=== PATIENT | female | born 1945 | race Caucasian/White ===

== ENCOUNTER → 2018-12-03 | Outpatient (CLI) | payer OTHER ==
--- NOTE | 2018-12-03 12:43 | REP ---
BILATERAL MAMMOGRAM WITH 3D TOMOSYNTHESIS, DIAGNOSTIC MAMMOGRAM LEFT BREAST, AND LEFT BREAST ULTRASOUND: HISTORY: Palpable lump in the region of the left axillary tail since September. Family history of breast cancer in paternal grandmother. [facility]%. COMPARISON: 07/29/2012 as well as other prior exams. There is mild to moderate bilateral fibroglandular tissue. At the site of the palpable lump in the left axillary tail region, there appears to be an irregular nodule surrounding spiculated densities. The nodule itself measures slightly greater than 1 cm in diameter. No other mass or clustered microcalcifications are seen bilaterally. Real-time sonographic evaluation of the left axillary tail region is performed at the site of the palpable abnormality. There is a spiculated hypoechoic nodule with internal blood flow. It measures 1.3 x 0.9 x 0.9 cm. This appears suspicious. IMPRESSION: BIRADS 4: BI-RADS/ACR category 4 mammogram. Suspicious Abnormality - biopsy should be considered. ACR 4 suspicious. At the site of the palpable lump in the region of the left axillary tail, there is an irregular nodule with surrounding spiculations. By ultrasound this is solid and also demonstrates spiculated irregular margins. Maximum diameter by ultrasound is 1.3 cm. I recommend ultrasound-guided biopsy with postprocedure mammogram. This mammogram was interpreted with the aid of an FDA-approved computer-aided detection system. A. Negative x-ray reports should not delay biopsy if a dominant or clinically suspicious mass is present. B. Four to eight percent of cancers are not identified by x-ray. C. Adenosis and dense breasts may obscure an underlying neoplasm. The patient states she/he had a clinical breast exam in November 2018. The patient letter being requested is M4. Electronically Signed by Cecilio Ervin MD 12/03/2018 12:54 P
== END ==
LOC: M RAD 10:01
PROVIDERS: ATTEND Physician Assistant
DX: N63.20 Unspecified lump in the left breast, unspecified quadrant (principal)
CPT/HCPCS: 76642; 77066; G0279

== ENCOUNTER → 2018-12-06 | Outpatient (REF) | payer OTHER ==
[~2018-12-06] MED LIST: GLIM2TAB PO; GLIM4TAB PO; HYDR-4571 PO; LISI-542 PO; METF10004 PO; MULTCAP PO; SIMV20TA2 PO; VITA100018 PO; VITA100054 PO
[2018-12-06 17:40] LABS: BASO # 0.1 10^3/uL (0.0-0.2); BASO % 0.7 % (0.0-1.0); EOS # 0.2 10^3/uL (0.0-0.50); EOS % 2.3 % (0.0-3.0); HEMATOCRIT 41.6 % (36.0-47.0); HEMOGLOBIN 12.9 g/dl (12.0-15.5); LYMPH # 2.3 10^3/uL (1.5-4.5); MEAN CORPUSCULAR HEMOGLOBIN 28.5 pg (27.0-33.0); MEAN CORPUSCULAR VOLUME 91.8 fl (80.0-96.0); MONO # 0.6 10^3/uL (0.0-0.8); NEUTROPHILS # 3.8 10^3/uL (1.8-7.7); NEUTROPHILS % 54.6 % (36.0-66.0); PLATELET COUNT, AUTOMATED 272 10^3/uL (150-450); RED BLOOD COUNT 4.53 10^6/uL (4.00-5.40)
[2018-12-06 17:43] LABS: ALBUMIN 3.6 GM/DL (3.2-5.2); ALT/SGPT 36 U/L (12-78); BILIRUBIN,TOTAL 0.5 MG/DL (0.2-1.0); BLOOD UREA NITROGEN 10 MG/DL (7-18); CALCIUM LEVEL 9.1 MG/DL (8.8-10.2); CARBON DIOXIDE LEVEL 28 MEQ/L (21-32); CHLORIDE LEVEL 105 MEQ/L (98-107); CHOLESTEROL LEVEL 121 MG/DL (<200); CHOLESTEROL RISK RATIO 2.086 (<5); CREATININE FOR GFR 0.78 MG/DL (0.55-1.30); GLOMERULAR FILTRATION RATE > 60.0 (>39); GLUCOSE, FASTING 190 MG/DL (70-100); HDL CHOLESTEROL 58 MG/DL (>40); LDL CHOLESTEROL 40 MG/DL (<100); NON-HDL-C 63 MG/DL; POTASSIUM SERUM 4.4 MEQ/L (3.5-5.1); SODIUM LEVEL 140 MEQ/L (136-145); TOTAL PROTEIN 7.5 GM/DL (6.4-8.2); TRIGLYCERIDES LEVEL 115 MG/DL (<150)
[2018-12-06 18:06] LABS: MALB URINE SIEMENS 35.7 MG/L
[2018-12-06 18:33] LABS: HEMOGLOBIN A1c 8.8 %
== END ==
LOC: M SFHCCAPE 07:07
PROVIDERS: ATTEND Physician Assistant
DX: E11.8 Type 2 diabetes mellitus with unspecified complications (principal); E78.5 Hyperlipidemia, unspecified

== ENCOUNTER → 2018-12-08 | Outpatient (CLI) | payer OTHER ==
[~2018-12-08] MED LIST changes: +LETR2.5T2 PO; +LIDOCAINE 1% MDV 20ML VIAL As Ordered ONE; +LOSA25TA14 PO
--- NOTE | 2018-12-08 12:23 | REP ---
DIGITAL DIAGNOSTIC UNILATERAL LEFT BREAST MAMMOGRAPHY WITH CAD: HISTORY: Marker clip placement mammography. The patient is status post ultrasound-guided needle biopsy and marker clip placement. Comparison mammography is from December 03, 2018. FINDINGS: CC, laterally exaggerated CC, and MLO views of the left breast demonstrate the marker clip in good position just deep to the nodular target in the far upper outer quadrant of the left breast. No hematoma is identified. IMPRESSION: Marker clip in good position. This mammogram was interpreted with the aid of an FDA-approved computer-aided detection system. Electronically Signed by Ej Watts MD 12/08/2018 04:33 P
--- NOTE | 2018-12-08 16:39 | REP ---
Ultrasound-guided left breast biopsy. The procedure was performed by JUAN Ramirez, under the direct supervision of Dr. Watts. The patient has a history of a of a palpable lump since September. On the mammogram dated 12/03/2097 this palpable area appeared as an irregular nodule surrounding spiculated densities. The risks and benefits of the procedure were explained to the patient and informed consent was obtained both verbally and written. Directly prior to the start of the procedure, a formal timeout was completed in the procedure room. The left breast mass was localized using ultrasound guidance. The skin was prepped and draped in a sterile fashion. 10 1% lidocaine was used as a local anesthetic. Using ultrasound guidance a 13-gauge suction assisted Mammotome needle was inserted and 6 core biopsy samples were obtained. A marker clip was placed at the biopsy site. The patient tolerated the procedure well and there were no immediate complications. After the appropriate monitored convalescence the patient was discharged from the department. Reviewed by JUAN Barcenas 12/08/2018 12:43 P Electronically Signed by Ej Watts MD 12/08/2018 04:31 P
== END ==
LOC: M RADPRO 09:55
PROVIDERS: ATTEND Physician Assistant
DX: C50.412 Malignant neoplasm of upper-outer quadrant of left female breast (principal)

== ENCOUNTER 2018-12-21 07:58 | Day surgery (SDC) | payer OTHER ==
[~2018-12-21] VITALS: Ht 154.9 cm; Wt 67.6 kg
[~2018-12-21 07:58] MED LIST changes: -HYDR-4571 PO; -LETR2.5T2 PO; -LIDOCAINE 1% MDV 20ML VIAL As Ordered ONE; +LIDOCAINE 5% (LIDODERM) PATCH TD ONE; -LOSA25TA14 PO; +LR 1,000 ML IV ONE
[2018-12-21] MEDS ORDERED: PROPOFOL 200 MG/20 ML VIAL As Ordered ONE (10:52)
[2018-12-21] MEDS ORDERED: ROCURONIUM BROMIDE 50 MG/5 ML VIAL As Ordered ONE ×2 (10:53→14:13)
[2018-12-21] MEDS ORDERED: LIDOCAINE 2% INJ 100 MG/5 ML SDV (FOR ANES.) As Ordered ONE (10:53)
[2018-12-21] MEDS ORDERED: KETOROLAC 60 MG/2 ML VIAL (J1885) As Ordered ONE (10:54)
[2018-12-21] MEDS ORDERED: dexameTHASONE 4 MG/ML 1ML VIAL (J1100) As Ordered ONE (10:54)
[2018-12-21] MEDS ORDERED: ONDANSETRON 4MG/2ML VIAL (J2405) As Ordered ONE ×2 (10:54→18:01)
[2018-12-21] MEDS ORDERED: MIDAZOLAM INJ 2 MG/2 ML VIAL (J2250) As Ordered ONE (11:06)
[2018-12-21] MEDS ORDERED: fentaNYL 250 MCG/5 ML INJECTION (J3010) As Ordered ONE (11:06)
[2018-12-21] MEDS ORDERED: METHYLENE BLUE 0.5% (5MG/ML) 10 ML AMP (PROVAYBLUE)(Q9968 PER 1MG) As Ordered ONE ×2 (12:33→12:51)
[2018-12-21] MEDS ORDERED: BUPIVACAINE HCL 0.25% 30 ML VIAL As Ordered ONE (12:33)
[2018-12-21] MEDS ORDERED: SUGAMMADEX SODIUM 500 MG/5 ML VIAL (BRIDION) As Ordered ONE (14:13)
[2018-12-21] MEDS ORDERED: ACETAMINOPHEN 1000MG 100ML IV BTL (OFIRMEV) (J0131 PER 10MG) As Ordered ONE (14:44)
[2018-12-21] MEDS ORDERED: LR 1,000 ML IV SCH (16:45)
[2018-12-21] MEDS ORDERED: ACETAMINOPHEN TAB 650MG DOSE (2X325MG) PO PRN (16:45)
[2018-12-21] MEDS ORDERED: fentaNYL 100 MCG/2 ML INJECTION (J3010) IV PRN (16:45)
[2018-12-21] MEDS ORDERED: ONDANSETRON 4MG/2ML VIAL (J2405) IV PRN (16:45)
[2018-12-21] MEDS ORDERED: NORCO, ANEXSIA 5/325MG TABLET (HYDROcodone/ACETAMINOPHEN) PO PRN (16:45)
[2018-12-21] MEDS ORDERED: PERCOCET 5MG/325MG TAB PO PRN (16:45)
[2018-12-21] MEDS ORDERED: HYDROMORPHONE HCL 0.5 MG/ 0.5 ML SYRINGE (J1170 PER 1) IV PRN (16:45)
[2018-12-21] MEDS ORDERED: oxyCODONE 5MG TAB As Ordered ONE (16:53)
[2018-12-21] MEDS ORDERED: oxyCODONE 5MG TAB PO PRN (17:00)
[2018-12-21] MEDS ORDERED: HYDR-4571 PO (17:08)
[2018-12-21 18:15] VITALS: BP 156/71
--- NOTE | 2018-12-22 20:34 | REP ---
Left Breast Lymphoscintigraphy The procedure was performed by JUAN Ramirez, under the personal supervision of Dr. Ervin. The risks and benefits of the procedure were explained to the patient and informed consent was obtained both verbally and written. Directly prior to the start of the procedure, a formal timeout was completed in the procedure room. Using topical anesthetic and sterile technique 1.005 mCi of technetium 99m filtered sulfur colloid was injected subdermally in eight fractionated periareolar injections. Images obtained 1 hour after injection show a dominant focus of the superior breast, other smaller less intense foci are visualized in the axilla. Impression: 1. Dominant focus of the superior left breast, other smaller less intense foci are visualized in the axilla. Reviewed by JUAN Barcenas 12/21/2018 02:37 P Electronically Signed by Cecilio Ervin MD 12/22/2018 08:25 P
--- NOTE | 2018-12-23 09:29 | RO ---
DATE OF PROCEDURE: 12/21/2018 PREOPERATIVE DIAGNOSIS: Left breast carcinoma. POSTOPERATIVE DIAGNOSIS: Left breast carcinoma. PROCEDURES PERFORMED: 1. Left breast/axilla sentinel lymph node biopsy. 2. Left partial mastectomy (lumpectomy). SURGEON: Dr. Ibanez ANESTHESIA: General. INDICATIONS FOR THE PROCEDURE: The patient is a 73-year-old woman who felt a small hard nodule in the subcutaneous tissues of the far upper outer quadrant of the left breast. A mammogram and ultrasound showed a small nodule in this area and an ultrasound-guided biopsy confirmed infiltrating ductal carcinoma. The patient is now for a left sentinel lymph node biopsy and partial mastectomy. OPERATIVE PROCEDURE: The patient was sent to the x-ray department where she underwent injection of radioactive tracer in the periareolar area. Lymphoscintigraphy was performed with identification of a single area of uptake in the axilla. She was brought to the operating room and placed supine on the operating table. She was placed under general endotracheal anesthesia. Several aliquots of methylene blue were injected into the area surrounding the tumor nodule palpable in the high upper outer quadrant of the left breast. The NeoProbe was used to inspect for areas of uptake in the axilla and a single quite hot spot in the anterior axilla just posterior to the edge of the pectoralis major muscle was identified. A folded towel was placed behind the patient's left shoulder to bring her left axilla forward somewhat. The patient's left upper extremity breast and chest wall were then prepped and draped in a sterile fashion. Initially the axilla was re-examined with the NeoProbe and the site of activity was marked with a skin marker. An approximately 3 cm transverse skin incision was placed over this area staying posterior to the left anterior axillary fold. The incision was deepened through the subcutaneous tissues using cautery. The axillary fascia was opened and dissection then proceeded into the axillary tissues guided by the NeoProbe. The node was identified posterior to the pectoral muscle. With s combination of sharp and cautery dissection the dissection was deepened into the axilla. An approximately 1 cm soft tissue mass consistent with a node with some surrounding fat was identified. This appeared to have a second node attached adjacent to this and these two nodes were removed together and then off the field. The radial labeled node had a 10-second gamma count of 24,245. The second node had no recorded activity. The background count within the axilla was 233 for 10 seconds. No other hot spots were identified. Hemostasis was ensured. I elected to leave the wound open well proceeding with the wide excision of the cancer as the line of excision for the cancer would represent a continuation from the lateral aspect of the sentinel node incision. A skin marker was used outline an elliptical excision surrounding the palpable tumor nodule with a margin of approximately 1-1/2-2 cm on all sides. The skin was incised with a scalpel and this was carried medially to connect with the end of the sentinel node biopsy site. The incision was then deepened through the deep dermis and the subcutaneous tissues using the needle tip cautery. Dissection was deepened into the deeper tissues of the breast. The excision was carried down to the fascia of the chest wall. In one area on the inferior aspect of the specimen a small fibrotic appearing area was transected with the cautery. I do not believe this represented tumor but just in case another small rim of tissue was excised and this area including a small piece of skin and underlying tissue and this site of firmer tissue was marked with a silk suture. The specimen removed was 9 x 5 x 4 cm in maximal dimension. This was marked appropriately using the vector margin marker system. This was sent for permanent pathology. While performing the partial mastectomy I was called by Dr. Robertson of pathology who reported that frozen sections on the two identified lymph nodes showed no evidence of cancer in the specimen. The wound was inspected for hemostasis and this was ensured with the cautery. The wound was large enough that I felt there might be benefit from a drain so a 19-[place] Butch drain was placed through a stab wound at the lateral inferior margin of the breast and directed up through the bed of the lumpectomy site and into the axillary dissection site. The deeper tissues were approximated with multiple simple sutures of #2-0 chromic. More superficially the tissues were approximated with some #3-0 chromic and #3-0 Vicryl was used to approximate the skin edges. A running subcuticular suture of #4-0 Vicryl was then used to close the skin edges. Steri-Strips were applied. The drain was sutured to the skin with a #2-0 silk and the site was dressed with a chlorhexidine gluconate OpSite. The drain was connected to a Ervin-Edmondson bulb. A bulky bandage was applied. The patient's specimens included: 1. [place] [id number]. Specimen two was additional lymph node. Specimen three was the partial mastectomy marked with a margin marker system and specimen four was the extra breast tissue from the additional margin at the inferior aspect marked with a silk suture at the area of interest. The patient was awakened in the operating room, extubated and moved to the recovery room in stable condition. SIN
[2019-01-04] MEDS ORDERED: LOSA25TA14 PO (13:55)
[2019-01-06] MEDS ORDERED: LETR2.5T2 PO (13:26)
== END 2018-12-21 18:33 | disposition home or self-care (01) ==
LOC: M SDC 07:58
PROVIDERS: ATTEND Surgery
DX: C50.412 Malignant neoplasm of upper-outer quadrant of left female breast (principal); Z17.0 Estrogen receptor positive status [ER+]; I10 Essential (primary) hypertension; E78.5 Hyperlipidemia, unspecified; E11.9 Type 2 diabetes mellitus without complications; E04.9 Nontoxic goiter, unspecified; K58.8 Other irritable bowel syndrome; K21.9 Gastro-esophageal reflux disease without esophagitis; Z85.048 Personal history of other malignant neoplasm of rectum, rectosigmoid junction, and anus; Z85.41 Personal history of malignant neoplasm of cervix uteri; Z92.21 Personal history of antineoplastic chemotherapy; Z92.3 Personal history of irradiation; Z79.899 Other long term (current) drug therapy; Z79.84 Long term (current) use of oral hypoglycemic drugs
CPT/HCPCS: 19301; 38525; 78195; 88305; 88307; 88329; A9541; J0131; J1100; J1885; J2250; J2405; J3010; Q9968

== ENCOUNTER → 2019-01-04 | Outpatient (CLI) | payer OTHER ==
[~2019-01-04] MED LIST changes: +HYDR-4571 PO; +LETR2.5T2 PO; -LIDOCAINE 5% (LIDODERM) PATCH TD ONE; +LOSA25TA14 PO; -LR 1,000 ML IV ONE
--- NOTE | 2019-01-06 10:13 | RADONC ---
RADIATION ONCOLOGY CONSULTATION NOTE DATE OF SERVICE: 01/04/2019 CHART NUMBER: [id number]. DIAGNOSIS: Left breast cancer. STAGE: IA, [id number], ER positive, TN positive, HER2 negative, grade 2. ECOG PERFORMANCE STATUS: 0. CONSULTATION NOTE: Ms. Cleveland is a very pleasant 73-year-old white female with the diagnosis of a stage IA, [id number], moderately differentiated invasive ductal carcinoma of the left breast, which is ER positive, TN positive, and HER2 negative, who is presenting to me today status post lumpectomy and sentinel lymph node biopsy for discussion of postoperative radiation therapy for conservative breast management. HISTORY OF PRESENT ILLNESS: The patient was in the usual state of health but noticed a small pea-like lesion in the axillary tail of her left breast. On 12/03/2018, the patient underwent bilateral mammography, which revealed a 1.3 cm x 0.9 cm x 0.9 cm spiculated hypoechoic nodule in the axillary tail region of her left breast. On 12/21/2018, the patient underwent lumpectomy and sentinel lymph node biopsy. Pathology revealed a 1.6 cm moderately differentiated invasive ductal carcinoma. All margins of resection were negative with the closest margin measuring 5 mm of clearance. The tumor was estrogen receptor and progesterone receptor strongly positive and HER2 negative. One sentinel lymph node was sampled and was negative for malignancy, and a second axillary lymph node was sampled and was also negative for malignancy. The patient has done well since surgery and was seen by medical oncology who recommended adjuvant endocrine therapy. She is now presenting to me to discuss possible external beam radiation therapy, which she is strongly against. PAST MEDICAL HISTORY: The patient's past medical history is positive for a history of cervical or anal cancer back in 2000. I am attempting to obtain her records, which were from our department. They are not available to me at this moment. She had radiation, chemotherapy, and surgery for that and has done well with regard to long-term cure and control, although she reports that she had a very difficult time with the treatments and has been unable to have sex since and has bowel issues since then. Her past medical history is also positive for diabetes and a goiter. She had a hysterectomy in 1973 at the age of 27 for cervical cancer. FAMILY HISTORY: The patient's family history is positive for a mother with some type of cancer. as well as a paternal grandmother with cancer. ALLERGIES: The patient has no known drug allergies. SOCIAL HISTORY: The patient has never smoked cigarettes. She used to drink alcohol years ago. REVIEW OF SYSTEMS: The patient's review of systems continues to be positive for some episodic rectal bleeding, as well as scar tissue from radiation. She also has occasional diarrhea. Her review of systems is otherwise noncontributory. She denies nausea, vomiting, fevers, chills, night sweats, diplopia, headaches, anxiety or depression, anorexia, weight loss, visual disturbances, chest pain, urinary or bowel difficulties, bone pain, or neurological problems. PHYSICAL EXAMINATION: The patient is a well-developed, well-nourished female in no acute distress. HEENT examination is normocephalic, atraumatic. Extraocular movements are intact. There is no palpable cervical, supraclavicular, infraclavicular, axillary, or inguinal lymphadenopathy present. Lungs are clear to auscultation and percussion. Heart has a regular rate and rhythm. Abdomen is benign with no hepatosplenomegaly, masses, or tenderness. Breast examination reveals no masses or discharge bilaterally. Skeletal examination reveals no tenderness to pressure or percussion of the bony skeleton. Extremities reveal no clubbing, cyanosis, or edema. Neurologic examination is grossly intact, as is the remainder of the physical examination. ASSESSMENT: I had a very lengthy discussion with this patient and indeed reviewed the NCCN guidelines. The patient is strongly against receiving radiation, saying that radiation in the past has ruined her life. The guidelines do state breast irradiation may be omitted in patients equal to or greater than 70 years of age with estrogen/receptor positive, clinically node negative, T1 tumors, who receive adjuvant endocrine therapy. This category clearly includes this patient; and, therefore, she is one of the patients who can be omitted from radiation. I did point out to her that she had both cervical cancer and then anal cancer. Although she has had some difficulties with occasional rectal bleeding and some loose bowel movements, she is now 18 years out from that therapy, disease-free, and without a colostomy. I did go through the local recurrence rates with and without postoperative radiation therapy and the philosophy behind such treatment. Once again, in light of the NCCN guidelines, I cannot push this patient towards treatment. I did say we are available to her should she change her mind any time in the next few weeks. In the meantime, she is aware that she needs to continue to have close followup with her medical oncologist, Dr. Gautam. Dr. Gautam will be ordering routine mammography work and doing routine breast evaluations. In addition, she needs to continue with her adjuvant endocrine therapy. cc: MD Elias Bernabe MD MTDD
== END ==
LOC: M ONCR 12:21
PROVIDERS: ATTEND Radiology Radiation Oncology
DX: C50.912 Malignant neoplasm of unspecified site of left female breast (principal)

== ENCOUNTER → 2019-04-18 | Outpatient (REF) | payer OTHER ==
[~2019-04-18] MED LIST changes: -GLIM2TAB PO; +GLIM2TAB2 PO; -GLIM4TAB PO; +GLIM4TAB3 PO
[2019-04-18 17:22] LABS: ALBUMIN 3.7 GM/DL (3.2-5.2); ALT/SGPT 37 U/L (12-78); BILIRUBIN,TOTAL 0.5 MG/DL (0.2-1.0); BLOOD UREA NITROGEN 10 MG/DL (7-18); CALCIUM LEVEL 9.5 MG/DL (8.8-10.2); CARBON DIOXIDE LEVEL 29 MEQ/L (21-32); CHLORIDE LEVEL 105 MEQ/L (98-107); CHOLESTEROL LEVEL 156 MG/DL (<200); CHOLESTEROL RISK RATIO 2.557 (<5); GLOMERULAR FILTRATION RATE > 60.0 (>39); GLUCOSE, FASTING 209 MG/DL (70-100); HDL CHOLESTEROL 61 MG/DL (>40); LDL CHOLESTEROL 75 MG/DL (<100); NON-HDL-C 95 MG/DL; POTASSIUM SERUM 4.4 MEQ/L (3.5-5.1); SODIUM LEVEL 140 MEQ/L (136-145); TOTAL PROTEIN 7.7 GM/DL (6.4-8.2); TRIGLYCERIDES LEVEL 102 MG/DL (<150)
[2019-04-18 17:44] LABS: MALB URINE SIEMENS 17.6 MG/L; MAU/CREAT RATIO 10.7 MCG/MG (0.0-30.0)
[2019-04-18 17:46] LABS: BASO % 0.6 % (0.0-1.0); EOS # 0.3 10^3/uL (0.0-0.5); EOS % 3.7 % (0.0-3.0); HEMATOCRIT 41.5 % (36.0-47.0); HEMOGLOBIN 12.6 g/dl (12.0-15.5); LYMPH # 2.3 10^3/uL (1.5-5.0); LYMPH % 34.7 % (24.0-44.0); MEAN CORPUSCULAR HEMOGLOBIN 28.1 pg (27.0-33.0); MEAN CORPUSCULAR HGB CONC 30.4 g/dl (32.0-36.5); MEAN CORPUSCULAR VOLUME 92.4 fl (80.0-96.0); MONO # 0.6 10^3/uL (0.0-0.8); MONO % 9.4 % (0.0-5.0); NEUTROPHILS # 3.4 10^3/uL (1.5-8.5); PLATELET COUNT, AUTOMATED 247 10^3/uL (150-450); RED BLOOD COUNT 4.49 10^6/uL (4.00-5.40); WHITE BLOOD COUNT 6.7 10^3/uL (4.0-10.0)
[2019-04-18 18:13] LABS: HEMOGLOBIN A1c 8.8 %
== END ==
LOC: M SFHCCAPE 06:58
PROVIDERS: ATTEND Physician Assistant
DX: I10 Essential (primary) hypertension (principal); E11.8 Type 2 diabetes mellitus with unspecified complications; E78.5 Hyperlipidemia, unspecified

== ENCOUNTER → 2019-05-16 | Outpatient (CLI) | payer OTHER ==
[~2019-05-16] MED LIST changes: -SIMV20TA2 PO; +SIMV20TA22 PO
--- NOTE | 2019-05-19 10:56 | DEXA ---
AP SPINE L1 - L4 1.060 -1.1 0.6 LT FEMUR TOTAL 0.875 -1.1 0.6 LT NECK 0.789 -1.8 0.1 RT FEMUR TOTAL 0.823 -1.5 0.2 RT NECK 0.728 -2.2 -0.4 TOTAL BODY TOTAL OTHER COMMENTS: There is low bone density of the spine and hips. The decreased density of the spine does not represent significant change. The decreased density of the left hip does represent a significant change. The increased density of the right hip does not represent a significant change. The density of the spine is increased 7.9% since the initial exam on 07/19/2010. The spine density has decreased 0.7% since the most recent exam on 10/30/2016. The density of the left hip has increased 2.7% since the initial exam on 10/17/2014. The density of the left hip has decreased 2.2% since the most recent exam on 10/30/2016. The density of the right hip has increased 2.5% since the initial exam on 10/17/2014. The density of the right hip has increased 1.2% since the most recent exam on 10/30/2016. FOLLOW-UP: Recommendation for the next bone density exam: 2 years. SIN
== END ==
LOC: M WHC 13:41
PROVIDERS: ATTEND Internal Medicine Medical Oncology
DX: C50.919 Malignant neoplasm of unspecified site of unspecified female breast (principal); M85.88 Other specified disorders of bone density and structure, other site; M85.851 Other specified disorders of bone density and structure, right thigh; M85.852 Other specified disorders of bone density and structure, left thigh

== ENCOUNTER → 2019-05-19 | Outpatient (REF) | payer OTHER ==
[2019-05-19 17:26] LABS: APPEARANCE, URINE CLEAR (CLEAR); BACTERIA, URINE AUTO NEGATIVE (NEGATIVE); BILIRUBIN, URINE AUTO NEGATIVE (NEGATIVE); BLOOD, URINE BLOOD NEGATIVE (NEGATIVE); COLOR, URINE YELLOW (YELLOW); GLUCOSE, URINE (UA) AUTO 3+ mg/dL (NEGATIVE); KETONE, URINE AUTO NEGATIVE (NEGATIVE); LEUKOCYTE ESTERASE, URINE AUTO NEGATIVE (NEGATIVE); MUCUS, URINE SMALL (NEGATIVE); NITRITE, URINE AUTO NEGATIVE (NEGATIVE); PROTEIN, URINE AUTO NEGATIVE (NEGATIVE); RBC, URINE AUTO 0 /HPF (0-3); SPECIFIC GRAVITY URINE AUTO 1.012 (1.002-1.035); SQUAMOUS EPITHELIAL CELL UR AU 0 /HPF (0-6); UROBILINOGEN, URINE AUTO 0.2 mg/dL (0.0-2.0); WBC, URINE AUTO 1 /HPF (0-3)
== END ==
LOC: M SFHCCAPE 12:04
PROVIDERS: ATTEND Physician Assistant
DX: R30.0 Dysuria (principal); B37.2 Candidiasis of skin and nail
CPT/HCPCS: 81001; 81002; 87070; 87077; 87086; 87186; G0463

== ENCOUNTER → 2019-07-25 | Outpatient (REF) | payer OTHER ==
[~2019-07-25] MED LIST changes: -GLIM2TAB2 PO; +GLIM2TAB4 PO; -GLIM4TAB3 PO; +GLIM4TAB5 PO
[2019-07-25 16:35] LABS: BASO # 0.1 10^3/uL (0.0-0.2); BASO % 0.7 % (0.0-1.0); EOS # 0.2 10^3/uL (0.0-0.5); EOS % 2.4 % (0.0-3.0); HEMATOCRIT 41.7 % (36.0-47.0); HEMOGLOBIN 12.6 g/dl (12.0-15.5); LYMPH # 2.6 10^3/uL (1.5-5.0); LYMPH % 36.4 % (24.0-44.0); MEAN CORPUSCULAR HEMOGLOBIN 27.6 pg (27.0-33.0); MEAN CORPUSCULAR HGB CONC 30.2 g/dl (32.0-36.5); MEAN CORPUSCULAR VOLUME 91.2 fl (80.0-96.0); MONO # 0.6 10^3/uL (0.0-0.8); MONO % 8.4 % (0.0-5.0); NEUTROPHILS # 3.7 10^3/uL (1.5-8.5); NEUTROPHILS % 51.8 % (36.0-66.0); PLATELET COUNT, AUTOMATED 254 10^3/uL (150-450); RED BLOOD COUNT 4.57 10^6/uL (4.00-5.40)
[2019-07-25 16:55] LABS: ALBUMIN 3.7 GM/DL (3.2-5.2); ALT/SGPT 36 U/L (12-78); BILIRUBIN,TOTAL 0.5 MG/DL (0.2-1.0); BLOOD UREA NITROGEN 10 MG/DL (7-18); CALCIUM LEVEL 8.9 MG/DL (8.8-10.2); CARBON DIOXIDE LEVEL 29 MEQ/L (21-32); CHLORIDE LEVEL 104 MEQ/L (98-107); CHOLESTEROL LEVEL 135 MG/DL (<200); CHOLESTEROL RISK RATIO 2.547 (<5); CREATININE FOR GFR 0.76 MG/DL (0.55-1.30); GLOMERULAR FILTRATION RATE > 60.0 (>39); GLUCOSE, FASTING 175 MG/DL (70-100); HDL CHOLESTEROL 53 MG/DL (>40); LDL CHOLESTEROL 62 MG/DL (<100); NON-HDL-C 82 MG/DL; POTASSIUM SERUM 4.4 MEQ/L (3.5-5.1); SODIUM LEVEL 140 MEQ/L (136-145); TOTAL PROTEIN 7.3 GM/DL (6.4-8.2); TRIGLYCERIDES LEVEL 102 MG/DL (<150)
[2019-07-25 18:16] LABS: HEMOGLOBIN A1c 9.3 %
== END ==
LOC: M SFHCCAPE 07:25
PROVIDERS: ATTEND Physician Assistant
DX: E11.8 Type 2 diabetes mellitus with unspecified complications (principal)

== ENCOUNTER → 2020-01-18 | Outpatient (REF) | payer OTHER ==
[~2020-01-18] MED LIST changes: +CALC600T60 PO; +INSUN SC; +OXYB-54 PO
[2020-03-03 17:38] LABS: ALBUMIN 3.8 GM/DL (3.2-5.2); ALT/SGPT 30 U/L (12-78); BILIRUBIN,TOTAL 0.7 MG/DL (0.2-1.0); BLOOD UREA NITROGEN 17 MG/DL (7-18); CALCIUM LEVEL 9.6 MG/DL (8.8-10.2); CARBON DIOXIDE LEVEL 33 MEQ/L (21-32); CHLORIDE LEVEL 106 MEQ/L (98-107); CREATININE FOR GFR 0.85 MG/DL (0.55-1.30); GLOMERULAR FILTRATION RATE > 60.0 (>39); GLUCOSE, FASTING 152 MG/DL (70-100); HEMOGLOBIN A1c 7.6 %; POTASSIUM SERUM 4.3 MEQ/L (3.5-5.1); SODIUM LEVEL 140 MEQ/L (136-145); TOTAL PROTEIN 7.6 GM/DL (6.4-8.2)
[2020-03-11 15:10] LABS: BASO # 0.1 10^3/uL (0.0-0.2); BASO % 0.7 % (0.0-1.0); EOS # 0.2 10^3/uL (0.0-0.5); EOS % 2.8 % (0.0-3.0); LYMPH # 2.4 10^3/uL (1.5-5.0); LYMPH % 34.7 % (24.0-44.0); MEAN CORPUSCULAR HGB CONC 31.1 g/dl (32.0-36.5); MEAN CORPUSCULAR VOLUME 93.2 fl (80.0-96.0); MONO # 0.7 10^3/uL (0.0-0.8); MONO % 10.4 % (0.0-5.0); NEUTROPHILS # 3.5 10^3/uL (1.5-8.5); PLATELET COUNT, AUTOMATED 255 10^3/uL (150-450); RED BLOOD COUNT 4.83 10^6/uL (4.00-5.40); WHITE BLOOD COUNT 6.8 10^3/uL (4.0-10.0)
== END ==
LOC: M LABDRAWC 11:45
PROVIDERS: ATTEND Physician Assistant
DX: H65.01 Acute serous otitis media, right ear (principal); H61.21 Impacted cerumen, right ear; Z79.84 Long term (current) use of oral hypoglycemic drugs
CPT/HCPCS: 36415; 80053; 83036; 85025; G0463

== ENCOUNTER → 2020-04-19 | Outpatient (REF) | payer OTHER ==
[2020-04-19 11:57] LABS: BASO % 0.5 % (0.0-1.0); EOS # 0.3 10^3/uL (0.0-0.5); HEMATOCRIT 45.1 % (36.0-47.0); HEMOGLOBIN 14.1 g/dl (12.0-15.5); LYMPH # 2.7 10^3/uL (1.5-5.0); LYMPH % 31.4 % (24.0-44.0); MEAN CORPUSCULAR HGB CONC 31.3 g/dl (32.0-36.5); MEAN CORPUSCULAR VOLUME 92.8 fl (80.0-96.0); MONO # 0.8 10^3/uL (0.0-0.8); MONO % 8.8 % (0.0-5.0); NEUTROPHILS # 4.9 10^3/uL (1.5-8.5); NEUTROPHILS % 56.1 % (36.0-66.0); PLATELET COUNT, AUTOMATED 250 10^3/uL (150-450); RED BLOOD COUNT 4.86 10^6/uL (4.00-5.40); WHITE BLOOD COUNT 8.7 10^3/uL (4.0-10.0)
[2020-04-19 12:18] LABS: HEMOGLOBIN A1c 7.3 %
[2020-04-19 12:37] LABS: CHOLESTEROL RISK RATIO 2.477 (<5); THYROID STIMULATING HORMONE 1.41 uIU/ML (0.358-3.740); TOTAL 25(OH) VITAMIN D 74.5 NG/ML (30.0-100.0)
== END ==
LOC: M SFHCCLAY 07:02
PROVIDERS: ATTEND Physician Assistant
DX: E11.8 Type 2 diabetes mellitus with unspecified complications (principal); E78.5 Hyperlipidemia, unspecified; I10 Essential (primary) hypertension; E55.9 Vitamin D deficiency, unspecified; E53.8 Deficiency of other specified B group vitamins

== ENCOUNTER → 2020-07-19 | Outpatient (REF) | payer OTHER ==
[~2020-07-19] MED LIST changes: -LISI-542 PO; +LISI-898 PO
[2020-07-19 13:04] LABS: ALBUMIN 3.6 GM/DL (3.2-5.2); ALT/SGPT 26 U/L (12-78); BILIRUBIN,TOTAL 0.5 MG/DL (0.2-1.0); BLOOD UREA NITROGEN 13 MG/DL (7-18); CALCIUM LEVEL 9.8 MG/DL (8.8-10.2); CARBON DIOXIDE LEVEL 28 MEQ/L (21-32); CHLORIDE LEVEL 106 MEQ/L (98-107); CHOLESTEROL LEVEL 151 MG/DL (<200); CHOLESTEROL RISK RATIO 2.696 (<5); GLOMERULAR FILTRATION RATE > 60.0 (>39); GLUCOSE, FASTING 160 MG/DL (70-100); HDL CHOLESTEROL 56 MG/DL (>40); LDL CHOLESTEROL 77 MG/DL (<100); NON-HDL-C 95 MG/DL; POTASSIUM SERUM 4.3 MEQ/L (3.5-5.1); SODIUM LEVEL 141 MEQ/L (136-145); TOTAL 25(OH) VITAMIN D 80.4 NG/ML (30.0-100.0); TOTAL PROTEIN 7.5 GM/DL (6.4-8.2); TRIGLYCERIDES LEVEL 91 MG/DL (<150); VITAMIN B12 LEVEL 683 PG/ML (247-911)
[2020-07-19 13:11] LABS: MALB URINE SIEMENS 22.6 MG/L; MAU/CREAT RATIO 15.2 MCG/MG (0.0-30.0)
[2020-07-19 13:38] LABS: HEMOGLOBIN A1c 7.5 %
== END ==
LOC: M SFHCCLAY 08:19
PROVIDERS: ATTEND Physician Assistant
DX: E11.8 Type 2 diabetes mellitus with unspecified complications (principal); E78.5 Hyperlipidemia, unspecified; E55.9 Vitamin D deficiency, unspecified; E53.8 Deficiency of other specified B group vitamins; Z79.899 Other long term (current) drug therapy

== ENCOUNTER 2020-09-15 07:34 | Emergency (ER) | payer OTHER ==
[~2020-09-15] VITALS: Ht 152.4 cm; Wt 65.9 kg
[2020-09-15] MEDS ORDERED: [UNRECOGNIZED DRUG - CODE] (08:10)
[2020-09-15] MEDS ORDERED: NS 1,000 ML IV ONE (08:35)
[2020-09-15] MEDS ORDERED: GASTROGRAFIN SOLUTION 30ML (Q9963) As Ordered ONE (08:55)
[2020-09-15] MEDS: GASTROGRAFIN SOLUTION 30ML PO SCH ×2 (09:07→09:36)
[2020-09-15 09:08] LABS: BASO % 0.2 % (0.0-1.0); EOS % 0.1 % (0.0-3.0); HEMATOCRIT 37.2 % (36.0-47.0); HEMOGLOBIN 12.1 g/dl (12.0-15.5); LYMPH # 1.6 10^3/uL (1.5-5.0); LYMPH % 13.9 % (24.0-44.0); MEAN CORPUSCULAR HEMOGLOBIN 28.8 pg (27.0-33.0); MEAN CORPUSCULAR HGB CONC 32.5 g/dl (32.0-36.5); MEAN CORPUSCULAR VOLUME 88.6 fl (80.0-96.0); MONO # 0.6 10^3/uL (0.0-0.8); NEUTROPHILS # 9.3 10^3/uL (1.5-8.5); NEUTROPHILS % 80.2 % (36.0-66.0); PLATELET COUNT, AUTOMATED 271 10^3/uL (150-450); WHITE BLOOD COUNT 11.6 10^3/uL (4.0-10.0)
[2020-09-15 09:38] LABS: ALBUMIN 3.5 GM/DL (3.2-5.2); ALT/SGPT 24 U/L (12-78); AMYLASE 39 U/L (25-115); BILIRUBIN,DIRECT < 0.1 MG/DL (0.0-0.2); BILIRUBIN,TOTAL 0.5 MG/DL (0.2-1.0); BLOOD UREA NITROGEN 13 MG/DL (7-18); CALCIUM LEVEL 9.7 MG/DL (8.8-10.2); CARBON DIOXIDE LEVEL 24 MEQ/L (21-32); CHLORIDE LEVEL 99 MEQ/L (98-107); CK-MB VALUE MASS 1.8 NG/ML (<3.6); CPK CREATINE PHOSPHOKINASE 143 U/L (26-192); CREATININE FOR GFR 1.09 MG/DL (0.55-1.30); GLOMERULAR FILTRATION RATE 52.1 (>39); GLUCOSE, FASTING 227 MG/DL (70-100); LIPASE 59 U/L (73-393); MB/CK RELATIVE INDEX 1.26 (< OR =4); POTASSIUM SERUM 4.2 MEQ/L (3.5-5.1); SODIUM LEVEL 134 MEQ/L (136-145); TOTAL PROTEIN 7.4 GM/DL (6.4-8.2); TROPONIN I < 0.02 NG/ML (< 0.10)
[2020-09-15] MEDS ORDERED: PIPERACILLIN/TAZOBACTAM SOD 4.5 GM in D5W MINI-BAG PLUS 50 ML IV ONE (09:40)
[2020-09-15] MEDS ORDERED: NS 980 ML in IV 1 EA IV ONE (10:05)
[2020-09-15] MEDS ORDERED: ISOVUE-370 76% 100ML VIAL As Ordered ONE (10:39)
--- NOTE | 2020-09-15 11:48 | REP ---
INDICATION: lower abd pain,stool changes,wt loss,h/o anal/breast/cerv CA. COMPARISON: None. TECHNIQUE: Abdomen/pelvis CT with IV and bowel contrast. FINDINGS: Patient has history of breast, cervix and anal carcinoma. In spite of this clinical history there are no comparison CT studies. The visualized lower lung calderon demonstrates subtle nodular thickening of the posterior pleura in the left lower lobe, of uncertain significance in the absence of comparison studies, fibrosis versus true pleural nodules. The hepatic parenchyma is homogeneous. The gallbladder, pancreas and spleen are unremarkable. The adrenals are unremarkable. The renal pelves and ureters are dilated to the urinary bladder bilaterally. No renal or ureteral calculi are identified. No bladder calculi are identified. No renal masses or cysts are identified. There is a nonobstructive 4 mm calculus at the lower pole of the left kidney. The abdominal aorta is unremarkable. There is no periaortic adenopathy or mass. There is no bowel distention or obstruction. There is no diverticulosis or diverticulitis. The mesentery is unremarkable. There is no ascites Pelvis: The appendix is unremarkable. There is a hysterectomy. The vaginal cuff and adnexa are unremarkable. The bladder is unremarkable. There are pelvic calcifications, likely phleboliths, not definitely within the ureters. There are no lytic, blastic or destructive skeletal changes. IMPRESSION: Bilateral hydronephrosis and bilateral hydroureter. No ureteral calculi are identified. No bladder calculi are identified. Hysterectomy. No adenopathy, ascites or mass. There is a nonobstructive left renal lower pole calculus. No perinephric stranding. No renal masses or cysts. <Electronically signed by Cecilio Neely > 09/15/20 [id number]
[2020-09-15] MEDS ORDERED: COLA100C5 PO (13:30)
[2020-09-15 15:06] VITALS: BP 140/60
[2020-09-20] MEDS ORDERED: MULT-90 PO (14:07)
== END 2020-09-15 15:12 | disposition home or self-care (01) ==
LOC: M ED 07:34
DX: K59.00 Constipation, unspecified (principal); N20.0 Calculus of kidney; N13.4 Hydroureter; N13.2 Hydronephrosis with renal and ureteral calculous obstruction; E11.65 Type 2 diabetes mellitus with hyperglycemia; I10 Essential (primary) hypertension; E78.5 Hyperlipidemia, unspecified; M85.80 Other specified disorders of bone density and structure, unspecified site; C18.9 Malignant neoplasm of colon, unspecified; D05.12 Intraductal carcinoma in situ of left breast; C53.9 Malignant neoplasm of cervix uteri, unspecified; R15.9 Full incontinence of feces; E55.9 Vitamin D deficiency, unspecified; D51.9 Vitamin B12 deficiency anemia, unspecified; Z79.4 Long term (current) use of insulin; Z79.899 Other long term (current) drug therapy
CPT/HCPCS: 74177; 80048; 80076; 81001; 82150; 82550; 82553; 83605; 83690; 84484; 85025; 93041; 94760; 96365; 99285; J2543; Q9967

== ENCOUNTER → 2020-09-17 | Outpatient (REF) | payer OTHER ==
[~2020-09-17] MED LIST changes: +COLA100C5 PO; +MULT-90 PO; +[UNRECOGNIZED DRUG - CODE]
== END ==
LOC: M LAB REF 09:58
PROVIDERS: ATTEND Physician Assistant
DX: R10.9 Unspecified abdominal pain (principal); R19.4 Change in bowel habit

== ENCOUNTER → 2020-10-05 | Outpatient (CLI) | payer OTHER ==
[~2020-10-05] MED LIST changes: +ISOVUE-370 76% 100ML VIAL As Ordered ONE
--- NOTE | 2020-10-06 08:20 | REP ---
INDICATION: ANAL/BREAST/CERVICAL CA F/U COMPARISON: None TECHNIQUE: Axial contrast enhanced images from the thoracic inlet to the upper abdomen with coronal and sagittal reformations using 75 ml Isovue 370 intravenous contrast material. This CT examination was performed using the following dose reduction techniques: Automated exposure control, adjustment of mA and/or kv according to the patient's size, and use of iterative reconstruction technique. FINDINGS: Bilateral lung calderon are relatively well aerated. There is minimal presumed chronic fibroatelectatic changes along the medial right middle lobe and lingula. There is no consolidation, effusion, or pneumothorax. There are few small noncalcified nodules up to approximately 3 mm which are nonspecific. No mass lesion identified. Tracheobronchial tree is patent. No significant adenopathy. Nonspecific heterogeneous changes to the thyroid gland are noted. The osseous structures demonstrate age-related degenerative changes and benign hemangioma in the T6 vertebral body. IMPRESSION: 1. Few small noncalcified nodules up to 3 mm are nonspecific. Given the patient's history, a follow-up examination at 6-9 months may be warranted. 2. No further acute mediastinal or pleuroparenchymal process appreciated. <Electronically signed by Jose Almodovar > 10/06/20 1416
== END ==
LOC: M RAD 16:04
PROVIDERS: ATTEND Internal Medicine Hematology & Oncology
DX: R91.8 Other nonspecific abnormal finding of lung field (principal); Z85.3 Personal history of malignant neoplasm of breast; Z85.048 Personal history of other malignant neoplasm of rectum, rectosigmoid junction, and anus; Z85.41 Personal history of malignant neoplasm of cervix uteri
CPT/HCPCS: 71260; Q9967

== ENCOUNTER → 2020-10-11 | Outpatient (REF) | payer OTHER ==
[~2020-10-11] MED LIST changes: +D31000TA2 PO; +EQ C0.05 PO; +FAMO1TAB11 PO; -ISOVUE-370 76% 100ML VIAL As Ordered ONE
[2020-10-11 16:33] LABS: BASO # 0.1 10^3/uL (0.0-0.2); BASO % 0.8 % (0.0-1.0); EOS # 0.2 10^3/uL (0.0-0.5); EOS % 2.7 % (0.0-3.0); HEMATOCRIT 40.2 % (36.0-47.0); HEMOGLOBIN 12.6 g/dl (12.0-15.5); LYMPH # 2.8 10^3/uL (1.5-5.0); LYMPH % 37.9 % (24.0-44.0); MEAN CORPUSCULAR HEMOGLOBIN 28.3 pg (27.0-33.0); MEAN CORPUSCULAR HGB CONC 31.3 g/dl (32.0-36.5); MEAN CORPUSCULAR VOLUME 90.3 fl (80.0-96.0); MONO # 0.7 10^3/uL (0.0-0.8); MONO % 9.5 % (2.0-8.0); NEUTROPHILS # 3.6 10^3/uL (1.5-8.5); PLATELET COUNT, AUTOMATED 267 10^3/uL (150-450); RED BLOOD COUNT 4.45 10^6/uL (4.00-5.40); WHITE BLOOD COUNT 7.4 10^3/uL (4.0-10.0)
[2020-10-11 16:44] LABS: ALBUMIN 3.6 GM/DL (3.2-5.2); ALT/SGPT 23 U/L (12-78); BILIRUBIN,TOTAL 0.4 MG/DL (0.2-1.0); BLOOD UREA NITROGEN 10 MG/DL (7-18); CALCIUM LEVEL 9.8 MG/DL (8.8-10.2); CARBON DIOXIDE LEVEL 29 MEQ/L (21-32); CHLORIDE LEVEL 107 MEQ/L (98-107); CHOLESTEROL LEVEL 163 MG/DL (<200); CHOLESTEROL RISK RATIO 2.507 (<5); GLOMERULAR FILTRATION RATE > 60.0 (>39); GLUCOSE, FASTING 112 MG/DL (70-100); HDL CHOLESTEROL 65 MG/DL (>40); LDL CHOLESTEROL 78 MG/DL (<100); NON-HDL-C 98 MG/DL; POTASSIUM SERUM 3.9 MEQ/L (3.5-5.1); SODIUM LEVEL 141 MEQ/L (136-145); THYROID STIMULATING HORMONE 0.881 uIU/ML (0.358-3.740); TOTAL PROTEIN 7.3 GM/DL (6.4-8.2); TRIGLYCERIDES LEVEL 100 MG/DL (<150)
[2020-10-11 17:04] LABS: HEMOGLOBIN A1c 7.2 %
== END ==
LOC: M SFHCCAPE 07:09
PROVIDERS: ATTEND Physician Assistant
DX: E11.8 Type 2 diabetes mellitus with unspecified complications (principal)

== ENCOUNTER → 2020-10-16 | Outpatient (CLI) | payer OTHER ==
[~2020-10-16] MED LIST changes: -D31000TA2 PO; -EQ C0.05 PO; -FAMO1TAB11 PO
--- NOTE | 2020-10-16 16:28 | REP ---
INDICATION: HYDRONEPHROSIS COMPARISON: 09/15/2020 TECHNIQUE: Axial noncontrast images from the lung bases to the pubic symphysis with coronal and sagittal reformations. This CT examination was performed using the following dose reduction techniques: Automated exposure control, adjustment of mA and/or kv according to the patient's size, and use of iterative reconstruction technique. FINDINGS: The right kidney/ureter appear relatively normal and without hydronephrosis or nephrolithiasis. The left kidney includes 3 mm-5 mm nonobstructing calculi and no evidence for hydroureteronephrosis, perinephric stranding, or obstructing ureteral calculus. Liver, spleen, pancreas, gallbladder, and bilateral adrenal glands are normal. The enteric system is without obstruction or acute inflammatory process. Pelvis demonstrates normal bladder and evidence for prior hysterectomy. No ascites. No free air. No adenopathy. Abdominal aorta without aneurysm. Musculoskeletal structures demonstrate age-related changes without acute osseous abnormality. Lung bases are clear. IMPRESSION: 1. Nonobstructing left renal calculi up to 5 mm. Both kidneys are otherwise normal and without hydronephrosis or perinephric stranding. 2. No acute abdominopelvic pathology appreciated. <Electronically signed by Jose Almodovar > 10/16/20 [id number]
== END ==
LOC: M RAD 15:04
PROVIDERS: ATTEND Urology
DX: N20.0 Calculus of kidney (principal)

== ENCOUNTER → 2020-11-21 | Outpatient (CLI) | payer OTHER ==
[~2020-11-21] MED LIST changes: +D31000TA2 PO; +EQ C0.05 PO; +FAMO1TAB11 PO
== END ==
LOC: M LABSMTC 10:11
PROVIDERS: ATTEND Anesthesiology
DX: Z01.812 Encounter for preprocedural laboratory examination (principal); Z20.822 Contact with and (suspected) exposure to COVID-19

== ENCOUNTER → 2021-01-22 | Outpatient (REF) | payer OTHER ==
[2021-01-22 16:48] LABS: ALBUMIN 3.5 GM/DL (3.2-5.2); ALT/SGPT 24 U/L (12-78); BILIRUBIN,TOTAL 0.5 MG/DL (0.2-1.0); BLOOD UREA NITROGEN 17 MG/DL (7-18); CALCIUM LEVEL 9.7 MG/DL (8.8-10.2); CARBON DIOXIDE LEVEL 30 MEQ/L (21-32); CHLORIDE LEVEL 107 MEQ/L (98-107); CHOLESTEROL LEVEL 155 MG/DL (<200); CHOLESTEROL RISK RATIO 2.719 (<5); CREATININE FOR GFR 0.85 MG/DL (0.55-1.30); GLOMERULAR FILTRATION RATE > 60.0 (>39); GLUCOSE, FASTING 144 MG/DL (70-100); HDL CHOLESTEROL 57 MG/DL (>40); LDL CHOLESTEROL 82 MG/DL (<100); NON-HDL-C 98 MG/DL; POTASSIUM SERUM 4.6 MEQ/L (3.5-5.1); SODIUM LEVEL 139 MEQ/L (136-145); TOTAL PROTEIN 7.2 GM/DL (6.4-8.2); TRIGLYCERIDES LEVEL 79 MG/DL (<150)
[2021-01-22 17:04] LABS: HEMOGLOBIN A1c 7.4 %
== END ==
LOC: M SFHCCAPE 07:25
PROVIDERS: ATTEND Physician Assistant
DX: E11.8 Type 2 diabetes mellitus with unspecified complications (principal)

== ENCOUNTER → 2021-01-29 | Outpatient (CLI) | payer OTHER ==
--- NOTE | 2021-01-29 11:09 | REP ---
INDICATION: PAIN IN LEFT HIP COMPARISON: None. TECHNIQUE: AP and frog-lateral views of the left hip FINDINGS: Generalized age-related changes include subtle increased sclerosis to the acetabulum with minimal joint space narrowing. No further overt osteoarthritic or significant degenerative changes are appreciated. No evidence for acute or healed injury. Surrounding soft tissues are normal. IMPRESSION: Mild generalized age-related changes. <Electronically signed by Jose Almodovar > 01/29/21 1107
--- NOTE | 2021-01-29 11:18 | REP ---
INDICATION: PAIN IN RIGHT KNEE COMPARISON: None. TECHNIQUE: AP, lateral, bilateral oblique and sunrise views. FINDINGS: Relatively mild to moderate chronic tricompartmental osteoarthritic degenerative changes include minimal joint space narrowing with subtle cortical irregularity and early spurring/osteophyte formation. No acute fracture or dislocation. No obvious effusion. 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 <Electronically signed by Jose Almodovar > 01/29/21 2110
--- NOTE | 2021-01-29 11:20 | REP ---
INDICATION: PAIN IN RIGHT FOOT COMPARISON: None. TECHNIQUE: AP, lateral, bilateral oblique views right foot. FINDINGS: Generalized age-related degenerative changes are appreciated. Findings are most pronounced at the 1st metatarsophalangeal joint where periarticular sclerosis, joint space narrowing and marginal spurring is most pronounced. No acute fracture or dislocation identified. IMPRESSION: Generalized age-related arthritic changes most pronounced at the 1st metatarsophalangeal joint.. No acute fracture or dislocation. <Electronically signed by Jose Almodovar > 01/29/21 1111
== END ==
LOC: M RAD 10:22
PROVIDERS: ATTEND Physician Assistant
DX: M16.12 Unilateral primary osteoarthritis, left hip (principal); M79.671 Pain in right foot; M25.561 Pain in right knee

== ENCOUNTER → 2021-02-21 | Outpatient (CLI) | payer OTHER ==
--- NOTE | 2021-02-21 09:14 | REP ---
INDICATION: LT HIP PAIN AND RT KNEE PAIN. COMPARISON: Comparison radiographs are from January 29, 2021. TECHNIQUE: AP view of the pelvis. FINDINGS: The bony pelvic ring is intact. Sacrum and SI joints are unremarkable. Symphysis pubis is normal in appearance. Femoral heads are smooth and rounded hip joint spaces are preserved. There is mild diffuse osteopenia. Degenerative disc changes are noted in the lumbar spine. IMPRESSION: Diffuse osteopenia. No acute abnormality. <Electronically signed by Richard Watts > 02/21/21 0960
--- NOTE | 2021-02-21 09:51 | REP ---
INDICATION: LT HIP PAIN AND RT KNEE PAIN. COMPARISON: Right knee 01/29/2021. TECHNIQUE: AP view bilateral knees. FINDINGS: There is no acute fracture or dislocation. There is mild lateral joint space narrowing on the right. There is not significant joint space narrowing on the left. Tiny spurs are noted of the bilateral lateral tibial plateaus. IMPRESSION: Mild narrowing of the lateral joint on the right. <Electronically signed by Cecilio Ervin > 02/21/21 [id number]
== END ==
LOC: M SOG 08:12
PROVIDERS: ATTEND Orthopaedic Surgery Adult Reconstructive Orthopaedic Surgery
DX: M25.552 Pain in left hip (principal); M25.561 Pain in right knee; M77.8 Other enthesopathies, not elsewhere classified; M51.36 Other intervertebral disc degeneration, lumbar region; M85.851 Other specified disorders of bone density and structure, right thigh; M85.852 Other specified disorders of bone density and structure, left thigh

== ENCOUNTER → 2021-04-23 | Outpatient (REF) | payer OTHER ==
[2021-04-23 16:38] LABS: ALBUMIN 3.4 GM/DL (3.2-5.2); BILIRUBIN,TOTAL 0.6 MG/DL (0.2-1.0); CALCIUM LEVEL 9.6 MG/DL (8.8-10.2); CHOLESTEROL RISK RATIO 3.117 (<5); CREATININE FOR GFR 1.09 MG/DL (0.55-1.30); GLOMERULAR FILTRATION RATE 52.1 (>39); POTASSIUM SERUM 4.3 MEQ/L (3.5-5.1); TOTAL PROTEIN 7.2 GM/DL (6.4-8.2)
[2021-04-23 17:14] LABS: TOTAL 25(OH) VITAMIN D 97.5 NG/ML (30.0-100.0)
[2021-04-23 19:46] LABS: HEMOGLOBIN A1c 7.5 %
== END ==
LOC: M SFHCCAPE 07:05
PROVIDERS: ATTEND Physician Assistant
DX: E11.8 Type 2 diabetes mellitus with unspecified complications (principal); E55.9 Vitamin D deficiency, unspecified; E53.8 Deficiency of other specified B group vitamins

== ENCOUNTER → 2021-04-24 | Outpatient (CLI) | payer OTHER ==
--- NOTE | 2021-04-24 15:46 | REP ---
INDICATION: NECK NODULES, HX BREAST CA COMPARISON: 09/15/2020 the only prior a contrast-enhanced exam TECHNIQUE: Standard helical technique without contrast FINDINGS: Mediastinum and pulmonary satnam are stable. No mass or adenopathy has developed there are no pleural or pericardial effusions. There is no change in the imaged upper abdomen or imaged osseous structures. Evaluation of the lung calderon shows multiple stable pulmonary nodules measuring 3 mm or less. No new or enlarging abnormal nodules, masses, or opacities have developed. IMPRESSION: Stable CT examination of the chest. <Electronically signed by Theron Ndiaye > 04/24/21 [id number]
== END ==
LOC: M PLAIMG 13:46
PROVIDERS: ATTEND Nurse Practitioner Adult Health
DX: R91.8 Other nonspecific abnormal finding of lung field (principal); C50.912 Malignant neoplasm of unspecified site of left female breast; M85.80 Other specified disorders of bone density and structure, unspecified site

== ENCOUNTER → 2021-04-29 | Outpatient (CLI) | payer OTHER | LOC: M LABSMTC 11:23 | PROVIDERS: ATTEND Anesthesiology | DX: Z01.812 Encounter for preprocedural laboratory examination (principal); Z20.822 Contact with and (suspected) exposure to COVID-19 ==

== ENCOUNTER 2021-05-03 10:42 | Day surgery (SDC) | payer OTHER ==
[~2021-05-03] VITALS: Ht 152.4 cm; Wt 65.8 kg
[~2021-05-03 10:42] MED LIST changes: +BSS IRR 500ML/OMIDRIA 4ML IRR BAG (OR ONLY) As Ordered ONE; +CEFUROXIME 1MG/0.1ML INTRACAMERAL INJ As Ordered ONE; +DUOVISC (0.50ML VISCOAT/0.85ML PROVISC) OPHTH KIT As Ordered ONE; -LISI-898 PO; +LISI5TAB11 PO; +LOSA25TA13 PO; -LOSA25TA14 PO; +OFLOXACIN 0.3 % (OCUFLOX) OPTH SOL 5ML OS SCH; +PHENYLEPHRINE 1.5%/LIDOCAINE 1% INTRAOCULAR 0.8ML SYRINGE As Ordered ONE; +PHENYLEPHRINE 2.5% OPHTH SOL 2ML OS SCH; +PROPARACAINE 0.5% OPHTH SOL 15ML OS ONE; +TROPICAMIDE 1% OPHTH SOLN 2ML OS SCH
[2021-05-03] MEDS ORDERED: MIDAZOLAM INJ 2MG/2ML VIAL (J2250 PER 1MG) As Ordered ONE (13:07)
[2021-05-03 14:05] VITALS: BP 161/72
== END 2021-05-03 14:16 | disposition home or self-care (01) ==
LOC: M SDC 10:42
PROVIDERS: ATTEND Ophthalmology
DX: H25.12 Age-related nuclear cataract, left eye (principal); I10 Essential (primary) hypertension; E78.5 Hyperlipidemia, unspecified; E11.9 Type 2 diabetes mellitus without complications; Z85.3 Personal history of malignant neoplasm of breast; Z92.21 Personal history of antineoplastic chemotherapy; Z92.3 Personal history of irradiation; Z79.899 Other long term (current) drug therapy
CPT/HCPCS: 66984; J1097; J2250; V2787

== ENCOUNTER → 2021-05-27 | Outpatient (CLI) | payer OTHER ==
[~2021-05-27] MED LIST changes: -BSS IRR 500ML/OMIDRIA 4ML IRR BAG (OR ONLY) As Ordered ONE; -CEFUROXIME 1MG/0.1ML INTRACAMERAL INJ As Ordered ONE; -DUOVISC (0.50ML VISCOAT/0.85ML PROVISC) OPHTH KIT As Ordered ONE; +LISI-898 PO; -LISI5TAB11 PO; -LOSA25TA13 PO; +LOSA25TA14 PO; -OFLOXACIN 0.3 % (OCUFLOX) OPTH SOL 5ML OS SCH; -PHENYLEPHRINE 1.5%/LIDOCAINE 1% INTRAOCULAR 0.8ML SYRINGE As Ordered ONE; -PHENYLEPHRINE 2.5% OPHTH SOL 2ML OS SCH; -PROPARACAINE 0.5% OPHTH SOL 15ML OS ONE; -TROPICAMIDE 1% OPHTH SOLN 2ML OS SCH
== END ==
LOC: M LABSMTC 11:36
PROVIDERS: ATTEND Anesthesiology
DX: Z01.812 Encounter for preprocedural laboratory examination (principal); Z20.822 Contact with and (suspected) exposure to COVID-19

== ENCOUNTER 2021-05-31 06:22 | Day surgery (SDC) | payer OTHER ==
[~2021-05-31] VITALS: Ht 152.4 cm; Wt 64.9 kg
[~2021-05-31 06:22] MED LIST changes: -LISI-898 PO; +LISI5TAB11 PO; +LOSA25TA13 PO; -LOSA25TA14 PO; +OFLOXACIN 0.3 % (OCUFLOX) OPTH SOL 5ML OD SCH; +PHENYLEPHRINE 2.5% OPHTH SOL 2ML OD SCH; +PROPARACAINE 0.5% OPHTH SOL 15ML OD ONE; +TROPICAMIDE 1% OPHTH SOLN 2ML OD SCH
[2021-05-31] MEDS ORDERED: LIDOCAINE 1% SDV 5ML VIAL As Ordered ONE (06:46)
[2021-05-31] MEDS ORDERED: BSS IRR 500ML/OMIDRIA 4ML IRR BAG (OR ONLY) As Ordered ONE (06:46)
[2021-05-31] MEDS ORDERED: CEFUROXIME 1MG/0.1ML INTRACAMERAL INJ As Ordered ONE (06:46)
[2021-05-31] MEDS ORDERED: fentaNYL 100 MCG/2 ML INJECTION As Ordered ONE (07:56)
[2021-05-31] MEDS ORDERED: MIDAZOLAM INJ 2MG/2ML VIAL (J2250 PER 1MG) As Ordered ONE (07:56)
[2021-05-31 09:35] VITALS: BP 142/62
== END 2021-05-31 09:35 | disposition home or self-care (01) ==
LOC: M SDC 06:22
PROVIDERS: ATTEND Ophthalmology
DX: H25.11 Age-related nuclear cataract, right eye (principal); I10 Essential (primary) hypertension; E78.5 Hyperlipidemia, unspecified; E11.9 Type 2 diabetes mellitus without complications; E04.9 Nontoxic goiter, unspecified; Z92.3 Personal history of irradiation; Z92.21 Personal history of antineoplastic chemotherapy; Z85.3 Personal history of malignant neoplasm of breast; Z85.038 Personal history of other malignant neoplasm of large intestine; K58.8 Other irritable bowel syndrome; K21.9 Gastro-esophageal reflux disease without esophagitis; M81.0 Age-related osteoporosis without current pathological fracture; Z79.899 Other long term (current) drug therapy
CPT/HCPCS: 66984; J1097; J2250; J3010; V2632

== ENCOUNTER → 2021-06-13 | Outpatient (CLI) | payer OTHER ==
[~2021-06-13] MED LIST changes: +LISI-898 PO; -LISI5TAB11 PO; -LOSA25TA13 PO; +LOSA25TA14 PO; -OFLOXACIN 0.3 % (OCUFLOX) OPTH SOL 5ML OD SCH; -PHENYLEPHRINE 2.5% OPHTH SOL 2ML OD SCH; -PROPARACAINE 0.5% OPHTH SOL 15ML OD ONE; -TROPICAMIDE 1% OPHTH SOLN 2ML OD SCH
--- NOTE | 2021-06-13 14:11 | REPMRS ---
Patient History The patient states she has not had a clinical breast exam in over a year. Patient is postmenopausal, has history of cancer in the left breast at age 73, has history of colorectal cancer at age 55, had previous chemotherapy at age 55, and has history of endometrial cancer at age 31. Family history of breast cancer in paternal grandmother. Malignant US guided breast biopsy of the left breast, December 08, 2018. Taking Letrozole for 2 years. Tomosynthesis is performed. Volpara breast density is b. 05/31/21 right arm. Patient states no breast complaints today. Patient has signed MRS History Sheet. Digital Woman Screen Mammo: June 13, 2021 - Exam #: [id number] Bilateral CC and MLO view(s) were taken. Technologist: RT Chantell Prior study comparison: April 04, 2020, bilateral digital woman screen mammo performed at [facility]. December 08, 2018, left breast digital mammo diagnostic unilateral, performed at [facility]. FINDINGS: There are scattered fibroglandular densities. There has been no change in the appearance of the mammogram from the prior studies. There is a mild amount of residual fibroglandular tissue which is fairly symmetric. There is no interval development of dominant mass, architectural distortion, or clustered microcalcification suggestive of malignancy. Assessment: BI-RADS/ACR category 1 mammogram. Negative Mammogram. Recommendation Routine screening mammogram in 1 year (for women over age 40). This mammogram was interpreted with the aid of an FDA-approved computer-aided dectection system. Electronically Signed By: Cecilio Ervin MD 06/13/21 [id number]
--- NOTE | 2021-06-13 14:15 | DEXAMM ---
INDICATION: HX LEFT BREAST CA / OSTEOPENIA. COMPARISON: 05/16/2019 as well as other prior exams. TECHNIQUE: Bone density was measured using dual-energy x-ray absorptiometry (DEXA). FINDINGS: AP SPINE L1-L4 BMD 1.067 g/cm2 Young Adult T-Score -1.0 Age Matched Z-Score 0.7. LT FEMUR, TOTAL BMD 0.872 g/cm2 Young Adult T-Score -1.1 Age Matched Z-Score 0.7. LT NECK BMD 0.797 g/cm2 Young Adult T-Score -1.7 Age Matched Z-Score 0.2. RT FEMUR, TOTAL BMD 0.828 g/cm2 Young Adult T-Score -1.4 Age Matched Z-Score 0.3. RT NECK BMD 0.703 g/cm2 Young Adult T-Score -2.4 Age Matched Z-Score -0.5. IMPRESSION: There is low bone density of the spine. There is low bone density of the left hip. There is low bone density of the right hip. The density of the spine has increased 8.7% since the initial exam on 07/19/2010. The density of the spine increased 0.7% since most recent exam on 05/16/2019. The density of the left hip has increased 2.3% since initial exam on 10/17/2014. The density of the left hip has decreased 0.3% since most recent exam on 05/16/2019. The density of the right hip has increased 3.1% since the initial exam on 10/17/2014. The density of the right hip has increased 0.6% since the most recent exam on 05/16/2019. FOLLOW-UP: Recommendation for the next bone density exam: 2 years. <Electronically signed by Cecilio Ervin > 06/13/21 [id number]
== END ==
LOC: M WHC 12:48
PROVIDERS: ATTEND Nurse Practitioner Adult Health
DX: Z12.31 Encounter for screening mammogram for malignant neoplasm of breast (principal); R22.1 Localized swelling, mass and lump, neck; Z85.3 Personal history of malignant neoplasm of breast; Z85.038 Personal history of other malignant neoplasm of large intestine; Z80.3 Family history of malignant neoplasm of breast; Z92.21 Personal history of antineoplastic chemotherapy; Z85.42 Personal history of malignant neoplasm of other parts of uterus; M85.89 Other specified disorders of bone density and structure, multiple sites

== ENCOUNTER → 2021-06-18 | Outpatient (CLI) | payer OTHER ==
--- NOTE | 2021-06-18 21:08 | REP ---
INDICATION: LT KNEE PAIN. 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 <Electronically signed by Jose Almodovar > 06/18/21 [id number]
== END ==
LOC: M SOG 13:37
PROVIDERS: ATTEND Orthopaedic Surgery Adult Reconstructive Orthopaedic Surgery
DX: M25.562 Pain in left knee (principal); M17.0 Bilateral primary osteoarthritis of knee

== ENCOUNTER → 2021-07-11 | Outpatient (CLI) | payer OTHER ==
[~2021-07-11] MED LIST changes: -LISI-898 PO; +LISI5TAB11 PO; +LOSA25TA13 PO; -LOSA25TA14 PO
== END ==
LOC: M PLAIMG 10:55
PROVIDERS: ATTEND Orthopaedic Surgery Adult Reconstructive Orthopaedic Surgery
DX: M23.92 Unspecified internal derangement of left knee (principal); M71.22 Synovial cyst of popliteal space [Baker], left knee; M22.42 Chondromalacia patellae, left knee; M25.462 Effusion, left knee; S83.272A Complex tear of lateral meniscus, current injury, left knee, initial encounter; Y92.9 Unspecified place or not applicable; Y93.9 Activity, unspecified; Y99.9 Unspecified external cause status

== ENCOUNTER → 2021-07-23 | Outpatient (REF) | payer OTHER ==
[~2021-07-23] MED LIST changes: -D31000TA2 PO; +VITA100093 PO
[2021-07-23 16:42] LABS: ALBUMIN 3.4 GM/DL (3.2-5.2); ALT/SGPT 26 U/L (12-78); BILIRUBIN,TOTAL 0.4 MG/DL (0.2-1.0); BLOOD UREA NITROGEN 11 MG/DL (7-18); CALCIUM LEVEL 9.4 MG/DL (8.8-10.2); CARBON DIOXIDE LEVEL 28 MEQ/L (21-32); CHLORIDE LEVEL 108 MEQ/L (98-107); CHOLESTEROL LEVEL 158 MG/DL (<200); CHOLESTEROL RISK RATIO 2.981 (<5); CREATININE FOR GFR 0.78 MG/DL (0.55-1.30); GLOMERULAR FILTRATION RATE > 60.0 (>39); GLUCOSE, FASTING 124 MG/DL (70-100); HDL CHOLESTEROL 53 MG/DL (>40); LDL CHOLESTEROL 77 MG/DL (<100); NON-HDL-C 105 MG/DL; POTASSIUM SERUM 4.4 MEQ/L (3.5-5.1); SODIUM LEVEL 142 MEQ/L (136-145); TOTAL PROTEIN 7.2 GM/DL (6.4-8.2); TRIGLYCERIDES LEVEL 138 MG/DL (<150)
[2021-07-23 17:35] LABS: HEMOGLOBIN A1c 7.4 %
== END ==
LOC: M SFHCCAPE 07:31
PROVIDERS: ATTEND Physician Assistant
DX: E11.8 Type 2 diabetes mellitus with unspecified complications (principal)

== ENCOUNTER → 2021-08-20 | Outpatient (REF) | payer OTHER | LOC: M SFHCDERM 14:45 | PROVIDERS: ATTEND Physician Assistant | DX: L82.1 Other seborrheic keratosis (principal) ==

== ENCOUNTER → 2021-11-20 | Outpatient (REF) | payer OTHER ==
[~2021-11-20] MED LIST changes: +MELA5CAP2 PO
[2021-11-20 16:28] LABS: HEMATOCRIT 33.3 % (36.0-47.0); HEMOGLOBIN 10.1 g/dl (12.0-15.5); MEAN CORPUSCULAR HEMOGLOBIN 27.8 pg (27.0-33.0); MEAN CORPUSCULAR HGB CONC 30.3 g/dl (32.0-36.5); MEAN CORPUSCULAR VOLUME 91.7 fl (80.0-96.0); PLATELET COUNT, AUTOMATED 421 10^3/uL (150-450); RED BLOOD COUNT 3.63 10^6/uL (4.00-5.40)
[2021-11-20 16:38] LABS: HEMOGLOBIN A1c 7.5 %
[2021-11-20 16:51] LABS: ALT/SGPT 142 U/L (12-78); BILIRUBIN,TOTAL 0.6 MG/DL (0.2-1.0); BLOOD UREA NITROGEN 10 MG/DL (7-18); CALCIUM LEVEL 9.3 MG/DL (8.8-10.2); CARBON DIOXIDE LEVEL 27 MEQ/L (21-32); CHLORIDE LEVEL 108 MEQ/L (98-107); CHOLESTEROL LEVEL 133 MG/DL (<200); CHOLESTEROL RISK RATIO 2.955 (<5); CREATININE FOR GFR 0.96 MG/DL (0.55-1.30); FOLATE > 24.0 NG/ML; GLOMERULAR FILTRATION RATE > 60.0 (>39); GLUCOSE, FASTING 117 MG/DL (70-100); HDL CHOLESTEROL 45 MG/DL (>40); LDL CHOLESTEROL 68 MG/DL (<100); NON-HDL-C 88 MG/DL; POTASSIUM SERUM 4.1 MEQ/L (3.5-5.1); SODIUM LEVEL 140 MEQ/L (136-145); TOTAL 25(OH) VITAMIN D 75.7 NG/ML (30.0-100.0); TOTAL PROTEIN 7.1 GM/DL (6.4-8.2); TRIGLYCERIDES LEVEL 100 MG/DL (<150); VITAMIN B12 LEVEL 680 PG/ML
[2021-11-20 16:52] LABS: CREATININE, URINE 46.5 MG/DL; MALB URINE SIEMENS 8.5 MG/L; MAU/CREAT RATIO 18.2 MCG/MG (0.0-30.0)
== END ==
LOC: M SFHCCAPE 07:16
PROVIDERS: ATTEND Physician Assistant
DX: E11.8 Type 2 diabetes mellitus with unspecified complications (principal); E53.8 Deficiency of other specified B group vitamins; I10 Essential (primary) hypertension; E55.9 Vitamin D deficiency, unspecified; Z79.899 Other long term (current) drug therapy

== ENCOUNTER → 2021-11-21 | Outpatient (REF) | payer OTHER ==
[2021-11-21 15:48] LABS: APPEARANCE, URINE CLEAR (CLEAR); BACTERIA, URINE AUTO NEGATIVE (NEGATIVE); BILIRUBIN, URINE AUTO NEGATIVE (NEGATIVE); BLOOD, URINE BLOOD 1+ (NEGATIVE); COLOR, URINE YELLOW (YELLOW); GLUCOSE, URINE (UA) AUTO NEGATIVE (NEGATIVE); KETONE, URINE AUTO NEGATIVE (NEGATIVE); LEUKOCYTE ESTERASE, URINE AUTO NEGATIVE (NEGATIVE); NITRITE, URINE AUTO NEGATIVE (NEGATIVE); PROTEIN, URINE AUTO NEGATIVE (NEGATIVE); RBC, URINE AUTO 1 /HPF (0-3); SQUAMOUS EPITHELIAL CELL UR AU 0 /HPF (0-6); UROBILINOGEN, URINE AUTO 0.2 mg/dL (0.0-2.0); WBC, URINE AUTO 2 /HPF (0-3)
== END ==
LOC: M SFHCCAPE 07:42
PROVIDERS: ATTEND Physician Assistant
DX: R39.11 Hesitancy of micturition (principal)

== ENCOUNTER → 2021-11-21 | Outpatient (CLI) | payer OTHER | LOC: M CLY 08:46 | PROVIDERS: ATTEND Physician Assistant | DX: M47.816 Spondylosis without myelopathy or radiculopathy, lumbar region (principal); M25.552 Pain in left hip; M54.50 Low back pain, unspecified; M79.605 Pain in left leg; M25.561 Pain in right knee; R39.11 Hesitancy of micturition; E11.8 Type 2 diabetes mellitus with unspecified complications; E53.8 Deficiency of other specified B group vitamins; I10 Essential (primary) hypertension; E55.9 Vitamin D deficiency, unspecified; Z79.899 Other long term (current) drug therapy ==

== ENCOUNTER → 2022-01-06 | Outpatient (REF) | payer OTHER ==
[2022-01-06 15:51] LABS: BASO # 0.1 10^3/uL (0.0-0.2); BASO % 0.6 % (0.0-1.0); EOS # 0.3 10^3/uL (0.0-0.5); EOS % 3.2 % (0.0-3.0); HEMATOCRIT 39.3 % (36.0-47.0); HEMOGLOBIN 12.3 g/dl (12.0-15.5); LYMPH # 2.5 10^3/uL (1.5-5.0); LYMPH % 30.9 % (24.0-44.0); MEAN CORPUSCULAR HEMOGLOBIN 28.4 pg (27.0-33.0); MEAN CORPUSCULAR HGB CONC 31.3 g/dl (32.0-36.5); MEAN CORPUSCULAR VOLUME 90.8 fl (80.0-96.0); MONO # 0.8 10^3/uL (0.0-0.8); MONO % 9.7 % (2.0-8.0); NEUTROPHILS # 4.5 10^3/uL (1.5-8.5); NEUTROPHILS % 55.2 % (36.0-66.0); PLATELET COUNT, AUTOMATED 272 10^3/uL (150-450); RED BLOOD COUNT 4.33 10^6/uL (4.00-5.40); WHITE BLOOD COUNT 8.2 10^3/uL (4.0-10.0)
[2022-01-06 19:31] LABS: BLOOD UREA NITROGEN 14 MG/DL (7-18); CREATININE FOR GFR 0.93 MG/DL (0.55-1.30); GLOMERULAR FILTRATION RATE > 60.0 (>39); GLUCOSE, FASTING 282 MG/DL (70-100)
[2022-01-06 19:32] LABS: ALBUMIN 3.6 GM/DL (3.2-5.2); ALT/SGPT 44 IU/L (0-32); BILIRUBIN,TOTAL 0.5 MG/DL (0.2-1.0); CARBON DIOXIDE LEVEL 26 mmol/L (20-29); CHLORIDE LEVEL 106 MEQ/L (98-107); FERRITIN 108 NG/ML (8-252); IRON (FE) 88 UG/DL (50-170); PERCENT SATURATION 25.4 % (13.2-45.0); POTASSIUM SERUM 4.8 MEQ/L (3.5-5.1); SODIUM LEVEL 139 MEQ/L (136-145); TOTAL IRON BINDING CAPACITY 347 UG/DL (250-450); TOTAL PROTEIN 7.4 GM/DL (6.4-8.2)
== END ==
LOC: M SFHCCLAY 10:55
PROVIDERS: ATTEND Nurse Practitioner Family
DX: R42 Dizziness and giddiness (principal); E11.8 Type 2 diabetes mellitus with unspecified complications

== ENCOUNTER → 2022-02-05 | Outpatient (CLI) | payer OTHER | LOC: M PLAIMG 07:39 | PROVIDERS: ATTEND Physician Assistant | DX: R42 Dizziness and giddiness (principal) ==

== ENCOUNTER → 2022-04-02 | Outpatient (REF) | payer OTHER ==
[~2022-04-02] MED LIST changes: +APRE1TAB; -[UNRECOGNIZED DRUG - CODE]
[2022-04-02 18:16] LABS: BASO # 0.1 10^3/uL (0.0-0.2); BASO % 0.7 % (0.0-1.0); EOS # 0.2 10^3/uL (0.0-0.5); EOS % 2.7 % (0.0-3.0); HEMOGLOBIN 12.6 g/dl (12.0-15.5); LYMPH # 2.8 10^3/uL (1.5-5.0); LYMPH % 34.3 % (24.0-44.0); MEAN CORPUSCULAR HEMOGLOBIN 27.5 pg (27.0-33.0); MEAN CORPUSCULAR HGB CONC 30.7 g/dl (32.0-36.5); MEAN CORPUSCULAR VOLUME 89.5 fl (80.0-96.0); MONO # 0.7 10^3/uL (0.0-0.8); MONO % 8.9 % (2.0-8.0); NEUTROPHILS # 4.3 10^3/uL (1.5-8.5); NEUTROPHILS % 52.9 % (36.0-66.0); PLATELET COUNT, AUTOMATED 285 10^3/uL (150-450); RED BLOOD COUNT 4.58 10^6/uL (4.00-5.40); WHITE BLOOD COUNT 8.2 10^3/uL (4.0-10.0)
[2022-04-02 18:42] LABS: ALBUMIN 3.6 GM/DL (3.2-5.2); ALT/SGPT 30 U/L (12-78); BILIRUBIN,TOTAL 0.4 MG/DL (0.2-1.0); BLOOD UREA NITROGEN 12 MG/DL (7-18); CALCIUM LEVEL 9.6 MG/DL (8.8-10.2); CARBON DIOXIDE LEVEL 27 MEQ/L (21-32); CHLORIDE LEVEL 105 MEQ/L (98-107); CHOLESTEROL LEVEL 175 MG/DL (<200); CHOLESTEROL RISK RATIO 2.966 (<5); CREATININE FOR GFR 0.78 MG/DL (0.55-1.30); GLOMERULAR FILTRATION RATE > 60.0 (>39); GLUCOSE, FASTING 169 MG/DL (70-100); HDL CHOLESTEROL 59 MG/DL (>40); IRON (FE) 76 UG/DL (50-170); LDL CHOLESTEROL 95 MG/DL (<100); NON-HDL-C 116 MG/DL; PERCENT SATURATION 20.2 % (13.2-45.0); POTASSIUM SERUM 4.3 MEQ/L (3.5-5.1); SODIUM LEVEL 138 MEQ/L (136-145); TOTAL IRON BINDING CAPACITY 376 UG/DL (250-450); TOTAL PROTEIN 7.5 GM/DL (6.4-8.2); TRIGLYCERIDES LEVEL 105 MG/DL (<150)
[2022-04-02 19:20] LABS: HEMOGLOBIN A1c 8.6 %
== END ==
LOC: M SFHCCAPE 07:33
PROVIDERS: ATTEND Physician Assistant
DX: R93.89 Abnormal findings on diagnostic imaging of other specified body structures (principal); Z79.899 Other long term (current) drug therapy

== ENCOUNTER → 2022-04-15 | Outpatient (CLI) | payer OTHER ==
[~2022-04-15] MED LIST changes: +PROHANCE 279.3MG/ML 15ML VIAL ONE
== END ==
LOC: M PLAIMG 09:12
PROVIDERS: ATTEND Physician Assistant
DX: S30.0XXA Contusion of lower back and pelvis, initial encounter (principal); X58.XXXA Exposure to other specified factors, initial encounter; Y92.9 Unspecified place or not applicable; M51.36 Other intervertebral disc degeneration, lumbar region; M51.26 Other intervertebral disc displacement, lumbar region
CPT/HCPCS: 72158; A9576

== ENCOUNTER → 2022-08-06 | Outpatient (REF) | payer MEDICARE ==
[~2022-08-06] MED LIST changes: -PROHANCE 279.3MG/ML 15ML VIAL ONE
== END ==
LOC: M SFHCCAPE 09:10
PROVIDERS: ATTEND Physician Assistant
DX: R30.0 Dysuria (principal)

== ENCOUNTER → 2022-08-07 | Outpatient (REF) | payer MEDICARE ==
[2022-08-07 17:34] LABS: BASO # 0.1 10^3/uL (0.0-0.2); BASO % 0.9 % (0.0-1.0); EOS # 0.4 10^3/uL (0.0-0.5); EOS % 3.9 % (0.0-3.0); HEMATOCRIT 42.4 % (36.0-47.0); HEMOGLOBIN 13.4 g/dl (12.0-15.5); LYMPH # 3.1 10^3/uL (1.5-5.0); LYMPH % 33.8 % (24.0-44.0); MEAN CORPUSCULAR HEMOGLOBIN 29.1 pg (27.0-33.0); MEAN CORPUSCULAR HGB CONC 31.6 g/dl (32.0-36.5); MEAN CORPUSCULAR VOLUME 92.2 fl (80.0-96.0); MONO % 10.6 % (2.0-8.0); NEUTROPHILS # 4.7 10^3/uL (1.5-8.5); NEUTROPHILS % 50.6 % (36.0-66.0); PLATELET COUNT, AUTOMATED 264 10^3/uL (150-450); WHITE BLOOD COUNT 9.3 10^3/uL (4.0-10.0)
[2022-08-07 17:39] LABS: TOTAL 25(OH) VITAMIN D 67.1 NG/ML (20.0-100.0); VITAMIN B12 LEVEL 611 PG/ML (211-911)
[2022-08-07 17:40] LABS: ALBUMIN 3.6 G/DL (3.2-5.2); ALKALINE PHOSPHATASE 51 U/L (46-116); ALT/SGPT 24 U/L (7.0-40); AST/SGOT 24 U/L (<34); BILIRUBIN,TOTAL 0.6 MG/DL (0.3-1.2); BLOOD UREA NITROGEN 13 MG/DL (9-23); CALCIUM LEVEL 9.1 MG/DL (8.3-10.6); CARBON DIOXIDE LEVEL 29 MMOL/L (20-31); CHLORIDE LEVEL 105 MMOL/L (98-107); CHOLESTEROL LEVEL 148 MG/DL (<200); CHOLESTEROL RISK RATIO 2.56 (<5); CREATININE FOR GFR 0.76 MG/DL (0.55-1.30); CREATININE, URINE 129.8 MG/DL; GLOMERULAR FILTRATION RATE > 60.0 (>39); GLUCOSE, FASTING 185 MG/DL (74-106); HDL CHOLESTEROL 57.6 MG/DL (>40); LDL CHOLESTEROL 68.8 MG/DL (<100); NON-HDL-C 90 MG/DL; POTASSIUM SERUM 4.5 MMOL/L (3.5-5.1); SODIUM LEVEL 139 MMOL/L (136-145); THYROID STIMULATING HORMONE 1.449 uIU/ML (0.55-4.78); TOTAL PROTEIN 7.2 G/DL (5.7-8.2); TRIGLYCERIDES LEVEL 108 MG/DL (<150)
[2022-08-07 17:41] LABS: FOLATE > 24.0 NG/ML (>5.4)
[2022-08-07 17:43] LABS: MAU/CREAT RATIO 11.5 MCG/MG (0.0-30.0)
[2022-08-07 18:04] LABS: HEMOGLOBIN A1c 9.1 % (4.0-6.0)
== END ==
LOC: M SFHCCAPE 07:29
PROVIDERS: ATTEND Physician Assistant
DX: E11.8 Type 2 diabetes mellitus with unspecified complications (principal); E55.9 Vitamin D deficiency, unspecified; E53.8 Deficiency of other specified B group vitamins; Z79.899 Other long term (current) drug therapy

== ENCOUNTER → 2022-10-29 | Outpatient (REF) | payer MEDICARE ==
[2022-10-29 17:33] LABS: HEMOGLOBIN A1c 9.7 % (4.0-6.0)
== END ==
LOC: M SFHCCAPE 07:29
PROVIDERS: ATTEND Physician Assistant
DX: E11.8 Type 2 diabetes mellitus with unspecified complications (principal)

== ENCOUNTER → 2022-11-03 | Outpatient (CLI) | payer MEDICARE | LOC: M WHC 13:04 | PROVIDERS: ATTEND Specialist | DX: Z12.31 Encounter for screening mammogram for malignant neoplasm of breast (principal); Z85.3 Personal history of malignant neoplasm of breast ==

== ENCOUNTER → 2023-02-17 | Outpatient (REF) | payer MEDICARE ==
[2023-02-17 18:22] LABS: HEMOGLOBIN A1c 7.3 % (4.0-6.0)
[2023-02-17 18:40] LABS: ALBUMIN 3.6 G/DL (3.2-5.2); ALKALINE PHOSPHATASE 53 U/L (46-116); ALT/SGPT 28 U/L (7.0-40); AST/SGOT 17 U/L (<34); BILIRUBIN,TOTAL 0.5 MG/DL (0.3-1.2); BLOOD UREA NITROGEN 11 MG/DL (9-23); CALCIUM LEVEL 9.7 MG/DL (8.3-10.6); CARBON DIOXIDE LEVEL 27 MMOL/L (20-31); CHLORIDE LEVEL 105 MMOL/L (98-107); CREATININE FOR GFR 0.77 MG/DL (0.55-1.30); GLOMERULAR FILTRATION RATE > 60.0 (>39); GLUCOSE, FASTING 167 MG/DL (74-106); POTASSIUM SERUM 4.4 MMOL/L (3.5-5.1); SODIUM LEVEL 141 MMOL/L (136-145); TOTAL PROTEIN 6.9 G/DL (5.7-8.2)
== END ==
LOC: M SFHCCAPE 07:10
PROVIDERS: ATTEND Physician Assistant Medical
DX: E11.8 Type 2 diabetes mellitus with unspecified complications (principal)

== ENCOUNTER → 2023-04-06 | Outpatient (CLI) | payer MEDICARE | LOC: M SLEEP 20:00 | PROVIDERS: ATTEND Nurse Practitioner Family | DX: G47.33 Obstructive sleep apnea (adult) (pediatric) (principal); R40.0 Somnolence ==

== ENCOUNTER → 2023-05-25 | Outpatient (REF) | payer MEDICARE ==
[2023-05-25 18:32] LABS: BASO # 0.1 10^3/uL (0.0-0.2); BASO % 0.6 % (0.0-1.0); EOS # 0.3 10^3/uL (0.0-0.5); HEMATOCRIT 41.4 % (36.0-47.0); HEMOGLOBIN 13.2 g/dl (12.0-15.5); LYMPH % 34.6 % (24.0-44.0); MEAN CORPUSCULAR HEMOGLOBIN 29.3 pg (27.0-33.0); MEAN CORPUSCULAR HGB CONC 31.9 g/dl (32.0-36.5); MEAN CORPUSCULAR VOLUME 91.8 fl (80.0-96.0); MONO # 0.8 10^3/uL (0.0-0.8); MONO % 9.2 % (2.0-8.0); NEUTROPHILS # 4.4 10^3/uL (1.5-8.5); NEUTROPHILS % 51.1 % (36.0-66.0); PLATELET COUNT, AUTOMATED 264 10^3/uL (150-450); RED BLOOD COUNT 4.51 10^6/uL (4.00-5.40); WHITE BLOOD COUNT 8.6 10^3/uL (4.0-10.0)
[2023-05-25 18:46] LABS: ALBUMIN 3.6 G/DL (3.2-5.2); ALKALINE PHOSPHATASE 57 U/L (46-116); ALT/SGPT 22 U/L (7.0-40); AST/SGOT 20 U/L (<34); BILIRUBIN,TOTAL 0.5 MG/DL (0.3-1.2); BLOOD UREA NITROGEN 9 MG/DL (9-23); CALCIUM LEVEL 10.1 MG/DL (8.3-10.6); CARBON DIOXIDE LEVEL 28 MMOL/L (20-31); CHLORIDE LEVEL 107 MMOL/L (98-107); CHOLESTEROL LEVEL 131 MG/DL (<200); CREATININE FOR GFR 0.74 MG/DL (0.55-1.30); GLOMERULAR FILTRATION RATE > 60.0 (>39); GLUCOSE, FASTING 111 MG/DL (74-106); HDL CHOLESTEROL 52.3 MG/DL (>40); LDL CHOLESTEROL 63.9 MG/DL (<100); NON-HDL-C 78.7 MG/DL; POTASSIUM SERUM 4.3 MMOL/L (3.5-5.1); SODIUM LEVEL 143 MMOL/L (136-145); TRIGLYCERIDES LEVEL 74 MG/DL (<150)
[2023-05-25 18:59] LABS: HEMOGLOBIN A1c 6.7 % (4.0-6.0)
== END ==
LOC: M SFHCCAPE 07:13
PROVIDERS: ATTEND Physician Assistant Medical
DX: E11.8 Type 2 diabetes mellitus with unspecified complications (principal); E78.5 Hyperlipidemia, unspecified; K21.9 Gastro-esophageal reflux disease without esophagitis

== ENCOUNTER → 2023-06-22 | Outpatient (CLI) | payer MEDICARE | LOC: M SLEEP 20:00 | PROVIDERS: ATTEND Nurse Practitioner Family | DX: G47.33 Obstructive sleep apnea (adult) (pediatric) (principal) ==

== ENCOUNTER → 2023-07-01 | Outpatient (REF) | payer MEDICARE | LOC: M SFHCDERM 08:07 | PROVIDERS: ATTEND Physician Assistant | DX: L40.9 Psoriasis, unspecified (principal) ==

== ENCOUNTER → 2023-07-06 | Outpatient (CLI) | payer MEDICARE ==
[~2023-07-06] MED LIST changes: +SEMA0.257 SQ
== END ==
LOC: M RAD 14:40
PROVIDERS: ATTEND Nurse Practitioner
DX: C50.412 Malignant neoplasm of upper-outer quadrant of left female breast (principal); J98.11 Atelectasis; L40.9 Psoriasis, unspecified

== ENCOUNTER → 2023-07-06 | Outpatient (REF) | payer MEDICARE | LOC: M SFHCDERM 12:54 | PROVIDERS: ATTEND Physician Assistant | DX: L40.9 Psoriasis, unspecified (principal) ==

== ENCOUNTER → 2023-07-13 | Outpatient (CLI) | payer MEDICARE | LOC: M WHC 10:20 | PROVIDERS: ATTEND Nurse Practitioner | DX: M85.89 Other specified disorders of bone density and structure, multiple sites (principal); Z85.3 Personal history of malignant neoplasm of breast; Z79.899 Other long term (current) drug therapy ==

== ENCOUNTER → 2023-08-31 | Outpatient (REF) | payer MEDICARE ==
[2023-08-31 17:32] LABS: ALBUMIN 3.6 G/DL (3.2-5.2); ALKALINE PHOSPHATASE 70 U/L (46-116); ALT/SGPT 27 U/L (7.0-40); AST/SGOT 24 U/L (<34); BILIRUBIN,TOTAL 0.5 MG/DL (0.3-1.2); BLOOD UREA NITROGEN 13 MG/DL (9-23); CALCIUM LEVEL 9.6 MG/DL (8.3-10.6); CARBON DIOXIDE LEVEL 30 MMOL/L (20-31); CHLORIDE LEVEL 106 MMOL/L (98-107); CREATININE FOR GFR 0.78 MG/DL (0.55-1.30); GLOMERULAR FILTRATION RATE > 60.0 (>39); GLUCOSE, FASTING 121 MG/DL (74-106); POTASSIUM SERUM 4.3 MMOL/L (3.5-5.1); SODIUM LEVEL 141 MMOL/L (136-145); TOTAL PROTEIN 6.8 G/DL (5.7-8.2)
[2023-08-31 18:02] LABS: HEMOGLOBIN A1c 6.3 % (4.0-6.0)
[2023-08-31 18:04] LABS: MAU/CREAT RATIO 3.8 MCG/MG (0.0-30.0)
== END ==
LOC: M SFHCCAPE 07:42
PROVIDERS: ATTEND Physician Assistant Medical
DX: E11.8 Type 2 diabetes mellitus with unspecified complications (principal)

== ENCOUNTER → 2023-11-05 | Outpatient (CLI) | payer MEDICARE | LOC: M WHC 08:40 | PROVIDERS: ATTEND Nurse Practitioner | DX: Z12.31 Encounter for screening mammogram for malignant neoplasm of breast (principal); Z85.3 Personal history of malignant neoplasm of breast | CPT/HCPCS: 77066; G0279 ==

== ENCOUNTER → 2024-03-24 | Outpatient (REF) | payer MEDICARE | LOC: M SFHCCAPE 16:36 | PROVIDERS: ATTEND Physician Assistant Medical | DX: J02.9 Acute pharyngitis, unspecified (principal) ==

== ENCOUNTER → 2024-08-23 | Outpatient (REF) | payer MEDICARE ==
[2024-08-23 18:08] LABS: ALBUMIN 3.6 G/DL (3.2-5.2); ALKALINE PHOSPHATASE 56 U/L (35-104); ALT/SGPT 28 U/L (7.0-40); AST/SGOT 20 U/L (<34); BILIRUBIN,TOTAL 0.5 MG/DL (0.3-1.2); BLOOD UREA NITROGEN 12 MG/DL (9-23); CALCIUM LEVEL 9.4 MG/DL (8.3-10.6); CARBON DIOXIDE LEVEL 31 MMOL/L (20-31); CHLORIDE LEVEL 103 MMOL/L (98-107); CHOLESTEROL LEVEL 159 MG/DL (<200); CHOLESTEROL RISK RATIO 2.95 (<5); CREATININE FOR GFR 0.74 MG/DL (0.55-1.30); GLOMERULAR FILTRATION RATE > 60.0 (>39); GLUCOSE, FASTING 130 MG/DL (74-106); HDL CHOLESTEROL 53.8 MG/DL (>40); LDL CHOLESTEROL 79.4 MG/DL (<100); NON-HDL-C 105.2 MG/DL; POTASSIUM SERUM 4.6 MMOL/L (3.5-5.1); SODIUM LEVEL 139 MMOL/L (136-145); TOTAL PROTEIN 7.4 G/DL (5.7-8.2); TRIGLYCERIDES LEVEL 129 MG/DL (<150)
[2024-08-23 18:10] LABS: FOLATE > 24.0 NG/ML (>5.4); VITAMIN B12 LEVEL 415 PG/ML (211-911)
[2024-08-23 18:33] LABS: CREATININE, URINE 138.3 MG/DL; MAU/CREAT RATIO 3.6 MCG/MG (0.0-30.0)
[2024-08-23 18:39] LABS: HEMOGLOBIN A1c 7.4 % (4.0-6.0)
== END ==
LOC: M SFHCCAPE 08:18
PROVIDERS: ATTEND Physician Assistant Medical
DX: E11.8 Type 2 diabetes mellitus with unspecified complications (principal); E78.5 Hyperlipidemia, unspecified; K21.9 Gastro-esophageal reflux disease without esophagitis

== ENCOUNTER 2024-09-26 12:17 | Day surgery (SDC) | payer MEDICARE ==
[~2024-09-26] VITALS: Ht 154.9 cm; Wt 63.5 kg
[~2024-09-26 12:17] MED LIST changes: +MEMA10TA PO; +SEMA2PEN SQ; +TREM100I SC
[2024-09-26] MEDS ORDERED: propofoL 200 MG/20 ML VIAL As Ordered ONE (13:07)
[2024-09-26] MEDS ORDERED: fentaNYL 100 MCG/2 ML INJECTION As Ordered ONE (13:08)
[2024-09-26] MEDS: INSULIN LISPRO (NovoLOG) PER UNIT SC PRN (13:36)
[2024-09-26 14:17] VITALS: BP 125/60; O2SAT 96
== END 2024-09-26 14:35 | disposition home or self-care (01) ==
LOC: M OPP 12:17
PROVIDERS: ATTEND Surgery
DX: K62.89 Other specified diseases of anus and rectum (principal); K64.0 First degree hemorrhoids; K92.1 Melena; K44.9 Diaphragmatic hernia without obstruction or gangrene; E11.9 Type 2 diabetes mellitus without complications; Z85.09 Personal history of malignant neoplasm of other digestive organs; Z92.21 Personal history of antineoplastic chemotherapy; Z92.3 Personal history of irradiation; I10 Essential (primary) hypertension; Z79.85 Long-term (current) use of injectable non-insulin antidiabetic drugs
CPT/HCPCS: 43235; 45378; J1815; J3010

== ENCOUNTER → 2025-01-04 | Outpatient (CLI) | payer MEDICARE | LOC: M LAB 08:33 | PROVIDERS: ATTEND Physician Assistant | DX: Z79.899 Other long term (current) drug therapy (principal) ==

== ENCOUNTER → 2025-03-02 | Outpatient (REF) | payer MEDICARE ==
[2025-03-02 18:33] LABS: ALT/SGPT 20.0 U/L (7.0-40); AST/SGOT 22.0 U/L (<34); CALCIUM LEVEL 9.3 MG/DL (8.3-10.6); CARBON DIOXIDE LEVEL 31.0 MMOL/L (20-31); CHLORIDE LEVEL 102.0 MMOL/L (98-107); CREATININE FOR GFR 0.75 MG/DL (0.55-1.30); GLOMERULAR FILTRATION RATE 80.9 (>39); POTASSIUM SERUM 3.9 MMOL/L (3.5-5.1); SODIUM LEVEL 139.0 MMOL/L (136-145)
[2025-03-02 18:42] LABS: BASO # 0.1 10^3/uL (0.0-0.2); BASO % 0.6 % (0.0-1.0); EOS # 0.3 10^3/uL (0.0-0.5); EOS % 3.7 % (0.0-3.0); LYMPH # 2.8 10^3/uL (1.5-5.0); LYMPH % 34.0 % (24.0-44.0); MONO # 0.8 10^3/uL (0.0-0.8); MONO % 9.3 % (2.0-8.0); NEUTROPHILS # 4.2 10^3/uL (1.5-8.5); NEUTROPHILS % 52.2 % (36.0-66.0); PLATELET COUNT, AUTOMATED 302 10^3/uL (150-450)
[2025-03-02 19:58] LABS: ESTIMATED AVERAGE GLUCOSE 160.0 MG/DL (60-110)
== END ==
LOC: M SFHCCAPE 07:22
PROVIDERS: ATTEND Physician Assistant Medical
DX: Z00.00 Encounter for general adult medical examination without abnormal findings (principal); Z85.3 Personal history of malignant neoplasm of breast; K21.9 Gastro-esophageal reflux disease without esophagitis; E11.8 Type 2 diabetes mellitus with unspecified complications